=== PATIENT | female | born 1995 | race Caucasian/White ===

== ENCOUNTER 2025-06-02 11:15 | Outpatient (CLI) | payer MEDICAID, SELFPAY | END 2025-06-02 11:16 | disposition home or self-care (01) | LOC: AMB 06-03 10:16 | PROVIDERS: PCP Physician Assistant Medical; Visit Provider Student in an Organized Health Care Education/Training Program | DX: R45.851 Suicidal ideations (principal); T50.912A Poisoning by multiple unspecified drugs, medicaments and biological substances, intentional self-harm, initial encounter; Y92.830 Public park as the place of occurrence of the external cause | CPT/HCPCS: A0425; A0427 ==

== ENCOUNTER 2025-06-02 11:40 | Emergency (ER) | payer MEDICAID, SELFPAY ==
[2025-06-02] VITALS (11 sets, daily range): BP systolic 144–170; BP diastolic 73–110; PULSE 96–123; RESP 16–17; TEMP 36.7; O2SAT 95–100
--- OUTSIDE RECORDS SUMMARY | 2025-06-02 11:42 | XMS_ITS | Encounter Summary ---
Author Organization [facility] Address [address] [place] [address] Care Team Providers Care Habilitation Assistant Name Role Phone Isiah Lozano P.A.-C. Primary Care Provider +1- [phone] Encounter Details Date Type Department Care Team (Late st Contact Info) Description 07/04/2011 Historical Ophthalmology RST OPH Donovan Echols O.D. 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 - 07/04/2011 10:01 AM CDT Eye Subsequent Visit HISTORY OF PRESENT ILLNESS Low vision consultation requested by Dr. Little. Also recommended by Dr. Meyers in [place]. Visual goals include 1. Distance vision. She sits in the front of the room and can generally see the board. 2. Near: removes glasses, enlarges print on computer screen. Loves to read, no sports. 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 Remove Rx for near. Add an extra +1.50 for reading comfort. No telescopic aids at this time. 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 [address] [place] [address] PCP - General Family Medicine 12/26/21 documented as of this encounter
--- OUTSIDE RECORDS SUMMARY | 2025-06-02 11:42 | XMS_ITS | Encounter Summary ---
Author Organization [facility] Address [address] [place] [address] Care Team Providers Care Radar Engineer Name Role Phone Isiah Lozano P.A.-C. Primary Care Provider +1- [phone] Encounter Details Date Type Department Care Team (Late st Contact Info) Description 01/28/2011 Historical Ophthalmology RST OPH Dain Little M.D. 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 - 01/28/2011 8:06 AM CDT Eye General CHIEF COMPLAINT Stargardt's Disease HISTORY OF PRESENT ILLNESS Decreased Vision; both eyes; x 1-2 years; no eye pain. IMPRESSION / REPORT / PLAN Overall impression: 30-2 visual field testing shows scattered abnormalities, with reduced sensitivity, OU. mFERG shows reduced macular responses out to ring 5 full field ERG responses show some reduction in anais responses with normal cone responses #1 Stargardt's with Fundus Flavimaculatus #2 low vision Recommend low-vision consultation with Dr. Echols DIAGNOSIS #1 Stargardt's with Fundus Flavimaculatus #2 low vision CDM Reports - EYEGEN Id: [id number] Status: Fnl documented in this encounter Plan [...] CDT COVID19 09/02/2023 09/02/2023 09/22/2023 6:16 AM COCKTAIL LOUNGE MANAGER documented as of this encounter Care Teams Radar Engineer Relationship Specialty Start Date End Date Isiah Lozano, P.A.-C. [address] [place] [address] PCP - General Family Medicine 12/26/21 documented as of this encounter
--- OUTSIDE RECORDS SUMMARY | 2025-06-02 11:42 | XMS_ITS | Encounter Summary ---
Author Organization [facility] Address [address] [place] [address] Care Team Providers Care Soaping Department Supervisor Name Role Phone Isiah Lozano P.A.-C. 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 [address] [place] [phone] PCP - General Family Medicine 12/26/21 documented as of this encounter
--- OUTSIDE RECORDS SUMMARY | 2025-06-02 11:42 | XMS_ITS | Clinical Summary ---
Author Organization [email or web address] [facility] Address [address] [place] [address] Care Team Providers Care Ship'S Pilot Name Role Phone Kiera Navarro MD Unavailable + [facility] Care, Branch Unavailable [phone] Isiah Lozano Primary Care Provider [phone] Allergies Active Allergy Reactions Criticality Noted Date Comments Lactose Nausea Only 11/18/2016 Lamotrigine Rash 04/21/2020 Latex Rash Medium 04/25/2020 Morphine Other - Describe In Comment Field 07/30/2017 Chest tightness worsened and labored breathing after 6 milligrams of morphine in the emergency department Hydrocodone-Acetaminop hen Rash,Nausea Only,GI Upset,Other - Describe In Comment Field 05/05/2020 Shooting pains up L arm Sulfamethoxazole-Trime thoprim Itching 09/16/2018 Tramadol Rash,Nausea Only,Flushing 04/09/2016 Medications ibuprofen (ADVIL; MOTRIN) 600 mg tabletIndications :Pain Take 1 tablet by mouth every 6 hours if needed for Pain (for MODERATE pain. If a NSAID and opiate are both ordered and pain rating is MODERATE, administer the NSAID first unless otherwise indicated). Maximum of 3200 mg in 24 hours. 60 tablet 0 9:40 AM CDT 06/06/20 20 Active Vienva 0.1-20 mg-mcg tablet Take 1 Tablet by mouth once daily. 01/10/20 21 Active omeprazole (PRILOSEC) 20 mg Delayed-Release capsule Take 20 mg by mouth once daily before a meal. 12/27/19 22 Active ketoconazole 2% shampoo (NIZORAL) 2 % shampoo As directed 0.5 mg once weekly. Use once weekly for maintenance, increase to every other day if there is a flare of dermatitis. 07/24/20 22 Active levothyroxine (SYNTHROID) 150 mcg tablet Take 150 mcg by mouth once daily. 10/06/19 23 Active polyethylene glycol (MIRALAX; GLYCOLAX) 17 g per packet packet Mix 1 Packet in liquid then take by mouth once daily. Active zonisamide (ZONEGRAN) 100 mg capsuleIndication s:Partial idiopathic epilepsy with seizures of localized onset, not intractable, without status epilepticus (HC) Take 3 Capsules (300 mg) by mouth at bedtime. 90 Capsule 11 06/15/20 24 Active oxyCODONE-acetami nophen (PERCOCET) 5-325 mg per tabletIndications :Retention of urine Take 1 Tablet by mouth every 6 hours if needed for Pain. Max acetaminophen dose: 4000mg in 24 hrs. 10 Tablet 5 12:54 PM [employer]ENT 10/20/19 25 Active hydrOXYzine HCL 50 mg tabletIndications :Anxiety TAKE 2 TABLETS BY MOUTH TWICE A DAY AT 8 AM AND 4 PM. 60 Tablet 3 03/21/20 25 Active propranoloL 10 mg tabletIndications :Panic Take 1 Tablet (10 mg) by mouth two times daily. 60 Tablet 3 04/07/20 25 Active gabapentin (NEURONTIN) 600 mg tabletIndications :Anxiety Take 1 Tablet (600 mg) by mouth three times daily. 90 Tablet 3 05/09/20 25 Active vortioxetine (Trintellix) 20 mg tabletIndications :Severe recurrent major depression without psychotic features (HC) Take 1 Tablet (20 mg) by mouth once daily. 30 Tablet 3 05/02/20 25 Active metoclopramide HCl (REGLAN) 10 mg tabletIndications :Nausea vomiting and diarrhea Take 1 Tablet (10 mg) by mouth every 8 hours if needed for Nausea/Vomiting for up to 4 doses. 4 Tablet 05/17/20 25 Active ondansetron (ZOFRAN ODT) 4 mg disintegrating tabletIndications :Nausea vomiting and diarrhea Place 1 Tablet (4 mg) on the tongue every 8 hours if needed for Nausea/Vomiting. 12 Tablet 05/17/20 25 Active metoclopramide HCl (REGLAN) 10 mg tabletIndications :Nausea vomiting and diarrhea Take 1 Tablet (10 mg) by mouth every 8 hours if needed for Nausea/Vomiting. 8 Tablet 05/17/20 25 Active QUEtiapine (SEROQUEL) 100 mg tabletIndications :Mood disorder Take 100 mg each morning. Together with evening dose of 400mg total daily dose is 500 mg 30 Tablet 3 05/30/20 25 Active QUEtiapine (SEROQUEL) 50 mg tabletIndications :Severe recurrent major depression without psychotic features (HC) Take 1 TABLET BY MOUTH together with 100 mg tab for total morning dose of 150 mg 30 Tablet 3 05/30/20 25 Active QUEtiapine (SEROQUEL) 400 mg tabletIndications :Severe recurrent major depression without psychotic features (HC),Insomnia, unspecified type Take 1 Tablet (400 mg) by mouth at bedtime. 30 Tablet 3 05/30/20 25 Active prazosin (MINIPRESS) 2 mg capsuleIndication s:Nightmares Take 1 Capsule (2 mg) by mouth at bedtime. TAKE ALONG WITH 1 MG CAPSULE FOR A TOTAL OF 3 MG. 30 Capsule 3 05/30/20 25 Active prazosin (MINIPRESS) 1 mg capsuleIndication s:Nightmares Take 1 Capsule (1 mg) by mouth at bedtime. Take along with the 2 mg dose 30 Capsule 3 05/30/20 25 Active mirtazapine (REMERON) 45 mg tabletIndications :Severe recurrent major depression without psychotic features (HC),Anxiety Take 1 Tablet (45 mg) by mouth at bedtime. 30 Tablet 3 05/30/20 25 Active LORazepam 1 mg tabletIndications :Anxiety Take 1 Tablet (1 mg) by mouth two times daily. 60 Tablet 05/30/20 25 Active QUEtiapine 100 mg tabletIndications :Mood disorder Take 100 mg each morning. Together with evening dose of 400mg total daily dose is 500 mg 30 Tablet 3 02/22/20 25 025 Discontin ued(Reord er (E-cancel not sent)) mirtazapine 45 mg tabletIndications :Anxiety,Severe recurrent major depression without psychotic features (HC) Take 1 Tablet (45 mg) by mouth at bedtime. 30 Tablet 3 02/22/20 25 025 Discontin ued(Reord er (E-cancel not sent)) prazosin 1 mg capsuleIndication s:Nightmares Take 1 Capsule (1 mg) by mouth at bedtime. Take along with the 2 mg dose 30 Capsule 3 02/22/20 25 025 Discontin ued(Reord er (E-cancel not sent)) QUEtiapine 400 mg tabletIndications :Severe recurrent major depression without psychotic features (HC),Insomnia, unspecified type Take 1 Tablet (400 mg) by mouth at bedtime. 30 Tablet 3 02/22/20 25 025 Discontin ued(Reord er (E-cancel not sent)) prazosin (MINIPRESS) 2 mg capsuleIndication s:Nightmares Take 1 Capsule (2 mg) by mouth at bedtime. TAKE ALONG WITH 1 MG CAPSULE FOR A TOTAL OF 3 MG. 30 Capsule 3 04/15/20 025 Discontin ued(Reord er (E-cancel not sent)) LORazepam 1 mg tabletIndications :Anxiety Take 1 Tablet (1 mg) by mouth two times daily. 60 Tablet 04/26/20 025 Discontin ued(Reord er (E-cancel not sent)) QUEtiapine (SEROQUEL) 50 mg tabletIndications :Severe recurrent major depression without psychotic features (HC) Take 1 TABLET BY MOUTH together with 100 mg tab for total morning dose of 150 mg 30 Tablet 1 04/26/20 025 Discontin ued(Reord er (E-cancel not sent)) cephalexin 500 mg capsuleIndication s:Nausea vomiting and diarrhea Take 1 Capsule (500 mg) by mouth three times daily for 7 days. 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 04/15/2025 Panic 04/07/2025 alcohol syndrome 04/07/2025 Impulse control disorder in adult 04/07/2025 Anxiety with agitation 03/21/2025 Nightmares 02/21/2025 Insomnia 02/21/2025 Urinary retention 05/05/2020 Suicidal ideation 04/21/2020 Overdose 04/21/2020 Seizure disorder 04/21/2020 MDD (major depressive disorder) 04/21/2020 Lab test negative for COVID-19 virus 04/21/2020 PTSD (post-traumatic stress disorder) 04/21/2020 alcohol spectrum disorder 04/21/2020 ADHD 04/21/2020 Anxiety 04/21/2020 Borderline personality disorder 04/21/2020 H/O self-harm 09/21/2019 Buttock wound, left, sequela 09/21/2019 Gastroesophageal reflux disease without esophagi tis 09/21/2019 Administrative encounter 02/24/2019 Severe recurrent major depre ssion without psychotic features 01/28/2019 Paranoia 01/15/2019 Delusional disorder 01/15/2019 Overview (05/18/2025): AI Summary: Delusional disorder was in the patient's history, with onset on 01/15/2019. The patient presented to the emergency department with complaints of suicidal ideation and extremity laceration. The patient denied stress-related paranoia or dissociation. 10/13/24: TSH 0.9 mIU/L 10/13/24: Glu 102 mg/dL On meds: quetiapine Recent encounter dx: 10/18/24: Comprehensive Visit - [facility] Department of Family Medicine in [place], [place], Family Medicine (from [facility]) 10/13/23: Comprehensive Visit - [facility] Department of Family Medicine in [place], [place], Family Medicine (from [facility]) 09/30/22: Comprehensive Visit - [facility] Department of Family Medicine in [place], [place], Family Medicine (from [facility]) 09/11/21: Comprehensive Visit - Department of Family Medicine in [place], [place], Family Medicine (from [facility]) 09/06/20: Comprehensive Visit - Department of Family Medicine and Residency in [place], [place], Family Medicine (from [facility]) Recent notes: 02/21/25: Progress Notes by Laura Brady MD ... [-] Stress-Related Paranoia/Dissociation: Denies. ... [+] ? Paranoia (HC) 01/15/2019 10/18/24: H&P Notes - H&P by Isiah Lozano P.A.-C. (from [facility]) ... [+] #13 Delusional Disorder (HCC) 10/18/24: H&P Notes - H&P by Isiah Lozano P.A.-C. (from [facility]) ... [+] Delusional Disorder (HCC) ... [+] Delusional Disorder (HCC) 01/15/2019 08/18/24: Consult Notes - Consults by Tricia Welch M.S., O.T. (from [facility]) ... 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 08/18/24: H&P ... [+] Borderline Personality Disorder (HCC) Delusional Disorder (HCC) Dystrophies Primarily Involving Retinal Pigment Epithelium Alcohol Syndrome (HCC) Gastroesophageal Reflux Disease Without Esophagitis Depression Major Recurrent Severe Without Psychotic Features (HCC) Neuromuscular Dysfunction Of Bladder Unspecified Posttraumatic Stress Disorder Brief Retention Urinary Seizure Disorder (HCC)... ... 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, trauma 04/13/20 07 Overview (04/13/2007): s/p muscle transfer surgery Attention deficit disorder with hyperactivity(31 4.01) 01/14/2007 Failure to thrive in childhood 01/14/2007 Attention deficit disorder with hyperactivity(31 4.01) Legally blind Borderline personality disorder Suicide attempt by ingestion of sertraline - Apr Post traumatic stress disorder (PTSD) Bladder dysfunction Resolved Problems Problem Noted Date Diagnosed Date Resolved Date Moderate recurrent major depression 01/15/2019 01/28/2019 Encounters Date Type Department Care Team Description 06/01/2025 Telephone [facility] [address] [place] [address] Laura Brady MD Follow Up 05/30/2025 1:45 PM CDT Telemedicine [facility] [address] [facility] [address] [place] [address] Laura Brady MD Telehealth; Medication Management; Follow Up 05/30/2025 Telephone [facility] [address] [facility] [address] [place] [address] Laura Brady MD Care Coordination 05/30/2025 Travel 05/18/2025 10:53 AM CDT - 05/18/2025 3:15 PM CDT Emergency [address] [address] Elvi Jaime PA Nausea vomiting and diarrhea (Primary Dx); Urinary tract infection without hematuria, site unspecified Discharge Disposition: Home Self Care 05/18/2025 Travel 05/17/2025 6:38 PM CDT - 05/17/2025 9:10 PM CDT Emergency [facility] [address] [place] [address] Erick King MD Nausea vomiting and diarrhea (Primary Dx) Discharge Disposition: Home Self Care 05/17/2025 Travel 05/02/2025 11:15 AM CDT Telemedicine [facility] [address] [place] [address] Laura Brady MD Follow Up; Medication Management; Telehealth 05/02/2025 Travel 04/29/2025 Refill [facility] [address] [place] [address] Laura Brady MD Refill Request (Trintellix) 04/26/2025 Refill [facility] [place] [address] [address] Laura Brady MD Refill Request (Quetiapine) 04/25/2025 11:15 AM CDT Telemedicine [address] [address] Laura Brady MD Follow Up 04/25/2025 Travel 04/15/2025 1:15 PM CDT Telemedicine [address] [address] Laura Brady MD Telehealth (patient is in [place]); Follow Up 04/08/[address] [address] Laura Brady MD Medication Management (gabapentin 600 mg tablet /) 04/07/[address] [address] Laura Brady MD ACC Order Request (Medication orders-propranoloL 10 mg tablet ) 04/06/2025 10:45 AM CDT Telemedicine [address] [address] Laura Brady MD Follow Up 03/31/[address] [address] Laura Brady MD Prior Authorization (vortioxetine (Trintellix) 20 mg tablet APPROVED 04/01/25-04/01/26) 03/29/[address] [address] Laura Brady MD Refill Request (Quetiapine) 03/28/2025 9:15 AM CDT Telemedicine [address] [address] Laura Brady MD Follow Up 03/28/2025 Refill [facility] [address] [address] Laura Brady MD Refill Request (Lorazepam) 03/28/2025 Travel 03/24/2025 Telephone [facility] [address] [facility] [address] [place] [address] Laura Brady MD Medication Management (QUEtiapine 25 mg tablet) 03/22/2025 Refill [facility] [address] [facility] [address] [place] [address] Laura Brady MD Refill Request (Quetiapine) 03/21/2025 1:15 PM CDT Telemedicine [facility] [address] [place] [address] Laura Brady MD Telehealth (patient is in [place]); Follow Up 03/17/2025 Telephone [facility] [address] [facility] [address] [place] [address] Laura Brady MD Refill Request (hydrOXYzine HCL 50 mg tablet) 03/14/2025 10:45 AM CDT Telemedicine [facility] [address] [place] [address] Laura Brady MD Follow Up 03/14/2025 Travel 03/11/2025 Telephone [facility] [address] [place] [address] Laura Brady MD Error-please disregard 03/11/2025 Telephone [facility] Centralized Nurse Triage Aimee Singleton requesting call from Last 3 Months Immunizations Immunization Administration Dates Next Due AMB Influenza, IIV3 (Age >=3 years) Preserve Free (Flu Clinic Only) 08/04/2012 DTP 1997 DTaP 04/26/2002, 9,10/31/1998,08/08 HIB-HepB (Comvax) 06/05/1999,10/31/1998,08/08/19 98 Hepatitis A (Peds) 09/04/2009,03/10/2009 Human Papilloma Virus Vaccine 09/04/2009, 009,03/10/2009 Inactivated Polio Vaccine 04/26/2002 Influenza A (H1N1), Inactivated 08/25/2009 Influenza A (H1N1), Inactiva kate (Age >=3 Years) 08/25/2009 Influenza Virus, Unspecified 07/18/2020 Influenza, High-dose Inactivated 07/16/2016 Influenza, IIV3 (Age 6-35 mos) 08/04/2012 Influenza, IIV3 (Age >=3 years) 10/12/2013,09/06,09/03/2010 Influenza, IIV4 06/17/2019,06/03/2016,09/16/2014 Influenza,LAIV4 Live Intrana bianca (Flumist) 08/21/2009,09/05/2008 MENINGOCOCCAL VACCINE 2 VIAL 2MO-55YO (MENVEO) 03/11/2014 MMR 04/26/2002,08/08/1998 Meningococcal Vaccine (Menactra) 05/12/2009 Oral Polio Vaccine 1997,1997, 997 Tdap 05/18/2019,03/10/2009 Tuberculin (PPD) 02/08/2019 Varicella Vaccine 09/05/2008,05/05/1998 Social History Tobacco Use Types Packs/Day Years Used Date Smoking Tobacco: Never Smokeless Tobacco: Never Tobacco Cessation:Counseling Given: Yes Comments:never smoking Alcohol Use Standard Drinks/Week Comments Not Currently 0 (1 standard drink = 0.6 oz pur e alcohol) occaisionally PHQ-2 Answer Date Recorded PHQ-2 TOTAL SCORE 2 05/30/2025 Social Connections Answer Date Recorded Frequency of Communication with Friends and Fami ly Not on file 09/15/2021 Financial Resource Strain Answer Date R ecorded Difficulty of Paying Living Expenses Not on file 09/15/2021 Difficulty of Paying Living Expenses Not on file 09/15/2021 Interpersonal Safety Answer Date Record ed Are you being hit, kicked, p ushed or yelled at (see row info)? No 05/18/2025 Interpersonal Safety Abuse 12 - 18 Not on file 05/18/2025 Interpersonal Safety Ambulatory Vulnerability No t on file 05/18/2025 Comments No Sex and Gender Information Value Date Recorded Sex Assigned at Not on file Legal Sex Female 5:46 AM [employer] Gender Identity Not on file Sexual Orientation Not on file Obstetrics History Para Term AB IAB SAB Ectopic Multiple Livin g Live Births 0 0 0 0 0 0 0 0 0 0 Last Filed Vital Signs Vital Sign Reading Time Taken Comments Blood Pressure 127/98 05/18/2025 2:23 PM CDT Pulse 104 05/18/2025 2:23 PM CDT Temperature 36.9 C (98.5 F) 05/18/2025 11:08 AM CDT Respiratory Rate 17 05/18/2025 11:08 AM CDT Oxygen Saturation 95% 05/18/2025 2:23 PM CDT Inhaled Oxygen Concentration - - Weight 108 kg (238 lb) 05/18/2025 11:08 AM CDT Height 171.5 cm (5' 7.5) 05/18/2025 11:08 AM CD T Body Mass Index 36.73 05/18/2025 11:08 AM CDT Plan of Treatment Health Maintenance Due Date Last Done Comments HIV for age 15-65 2012 Hepatitis C screening for age 18-79 2015 BMI (ht and wt on same day) for age 18+ 06/17/2020 06/17/2019, 05/31/2019, 05/18/2019, Additional history exists Pap test for age 21-65 05/18/2022 05/18/2019 COVID-19 vaccine series ( season) 2025 07/23/2022, 08/30/2021, 11/16/2020, Additional history exists Influenza Vaccine (#1) 2025 , 06/17/2019, 07/16/2016, Additional history exists Depression screening for age 12+ 05/30/2026 05/30/2025, 05/02/2025, 04/15/2025, Additional history exists Tetanus booster 05/18/2029 05/18/2019, 03/10/2009 RSV vaccine for adults or (1 - 1-dose 75+ series) 2072 Hepatitis B series for 19+ Completed 06/05, 10/31/1998, 08/08/1998 HPV series for age 9-45 Completed 09/04/20, 05/12/2009, 03/10/2009 Pneumococcal series for age 6-49 Aged Out No longer eligible based on patient's age to complete this topic Medical Devices Implanted Type Area Chinchilla Machine Operator Device Identifier Shelf Expiration Date Model / Serial / Lot Stimulator 7.7mm 14cc Interstim Ii - [id number] Implanted:Qty: 1 on 09/24/2019 at [facility] N/A: See Notes Med[employer] Pain Therapy 02/27/2020 [id number]# / [id number] / Description:RIGHT BUTTOCKS Medtronic Surescan Lead Kit [id number] - [id number] Implanted:Qty: 1 on 05/31/2020 by Liliana Olmos MD at [facility] N/A: Sacrum Medtronic [id number] / / [id number] Description:lead placed lowe r midline back Stimulator 7.7mm 14cc Interstim Ii - [id number] Implanted:Qty: 1 on 05/31/2020 by Liliana Olmos MD at [facility] N/A: Sacrum [employer] Pain Therapy 05/29/2021 [id number]# / [id number] / Lead Kit 4.32mm Spacing 28cm Length Interstim - [id number] Implanted:Qty: 1 on 10/20/2024 by Liliana Olmos MD at [facility] N/A: Buttock Med[employer] Pain Therapy 04/28/2026 [id number] / / [id number] Description:NO INFO JACQUELINE Smith .................... 10/21/2024 8:38 AM Sys Interstim X Surescan Mri Lead And Smart Cabinet Mounter - [id number] Implanted:Qty: 1 on 10/20/2024 by Liliana Olmos MD at [facility] N/A: Buttock Med[employer] Pain Therapy 03/12/2026 [id number] / [id number] / Description:NO INFO JACQUELINE Smith .................... 10/21/2024 8:38 AM Explanted Type Area Chinchilla Machine Operator Device Identifier Shelf Expiration Date Model / Serial / Lot Lead Intrdcr Bladder Interstim - [id number] Explanted:Qty: 1 on 09/24/2019 at [facility] [employer] Pain Therapy 12/04/2019 [id number]# / / [id number] Procedures Procedure Name Priority Date/Time Associated Diagnosis Comments URINE CULTURE ANDREW 05/18/2025 1:05 PM CDT URINALYSIS MICROSCOPIC STAT 05/18/2025 1:05 PM CDT UA W/ SEDIMENT EXAM REFLEXED PER CRITERIA STAT 05/18/2025 1:[address] ABDOMEN PELVIS W STAT 05/18/2025 1 2:30 PM CDT CBC WITH AUTO DIFFERENTIAL STAT 05/18/2025 11:44 AM CDT LIPASE STAT 05/18/2025 11:44 AM CDT COMP METABOLIC PANEL STAT 05/18/2025 11:44 AM CDT CBC WITH AUTO DIFFERENTIAL STAT 05/18/2025 11:44 AM CDT URINALYSIS MICROSCOPIC STAT 05/17/2025 7:39 PM CDT URINE STAT 05/17/2025 7:39 PM CDT UA W/ SEDIMENT EXAM REFLEXED PER CRITERIA STAT 05/17/2025 7:39 PM CDT CBC WITH AUTO DIFFERENTIAL STAT 05/17/2025 6:52 PM CDT LIPASE STAT 05/17/2025 6:52 PM CDT HEPATIC FUNCTION PANEL STAT 05/17/2025 6:52 PM CDT CBC WITH AUTO DIFFERENTIAL STAT 05/17/2025 6:52 PM CDT BASIC METABOLIC PANEL STAT 05/17/2025 6:52 PM CDT BENCH MECHANIC THIN PREP PAP SCREEN IMAGED Today 05/18/2019 11:20 AM CDT Pap smear for cervical cancer screening from Last 3 Months or Most Recently Relevant to Health Maintenance Results * (ABNORMAL) URINALYSIS MICROSCOPIC (05/18/2025 1:05 PM CDT) Only the most recent of2 resultswithin the time period is included. RBC 11-25(A) 0-2, None Seen /HPF 05/18/2025 1:19 PM CDT [facility] WBC 0-2 0-2, 3-5, None Seen /HPF 05/18/2025 1:19 PM CDT [facility] BACTERIA Many(A) None Seen, Rare, Few Bacteria/H PF 05/18/2025 1:19 PM CDT [facility] EPITHELIAL CELLS Few None Seen, Few Epi/HPF 05/18/2025 1:19 PM CDT [facility] Mucus Present 05/18/2025 1:19 PM CDT [facility] Urine URINE SPECIMEN / Unknown Non-Blood / Unknown 05/18/2025 1:05 PM CDT 05/18/2025 1:09 PM CDT Elvi RODRIGUEZ URINE Final R esult [facility] [address] [place] [address] * (ABNORMAL) URINE CULTURE (05/18/2025 1:05 PM CDT) CULTURE RESULT(A) 05/23/2025 2:53 PM CDT [facility] CULTURE 50,000-100,000 CFU/mL Escherichia coli 05/23/2025 2:53 PM CDT [facility] CULTURE 10,000-50,000 CFU/mL Enterococcus faecalis 05/23/2025 2:53 PM T [facility] Comment: Levofloxacin susceptibilities for Enterococcus available upon request for urine isolates ONLY. Levofloxacin is not routinely recommended for Enterococcus and can ONLY be used for infections isolated in the urinary tract. In the setting of polymicrobial urine cultures, Enterococcus often represents colonization and may not necessitate treatment. CULTURE <10,000 CFU/mL Multiple organisms probable contaminants 05/23/2025 2:53 PM CDT [facility] Urine URINE SPECIMEN / Unknown Non-Blood / Unknown 05/18/2025 1:05 PM CDT 05/18/2025 1:09 PM CDT Narrative Organism Antibiotic Method Susceptibility Escherichia coli TRIMETHOPRIM/SULF <=10/03: S Escherichia coli AMPICILLIN 4: S Escherichia coli CEFAZOLIN <=1: S Escherichia coli CEFAZOLIN-UC <=1: S Comment:Cefazolin-UC interpretations are for therapy of uncomplicated UTIs due to E.coli, K.pneumoniae, or P.mirablis. Cefazolin breakpoint is used as a surrogate to predict results for the oral agents - cefdinir, cefuroxime, and cephalexin, when used for therapy of uncomplicated UTIs due to E coli, K, pneumoniae, and P. mirabilis. The FDA recommends cefadroxil susceptibility can be deduced from cefazolin. Escherichia coli GENTAMICIN <=1: S Escherichia coli CEFTRIAXONE <=0.25: S Escherichia coli CEFTAZIDIME <=0.5: S Escherichia coli LEVOFLOXACIN <=0.12: S Escherichia coli CIPROFLOXACIN <=0.06: S Escherichia coli PIPERACILLIN/TAZO <=4: S Escherichia coli AMPICILLIN/SULBACTAM <=2: S Escherichia coli CEFEPIME <=0.12: S Escherichia coli MEROPENEM <=0.25: S Escherichia coli NITROFURANTOIN <=16: S Enterococcus faecalis AMPICILLIN <=2: S Enterococcus faecalis NITROFURANTOIN <=16: S Elvi RODRIGUEZ MICROBIOLOGY Final R esult [facility] [address] [place] [address], [place] * (ABNORMAL) UA W/ SEDIMENT EXAM REFLEXED PER CRITERIA (05/18/2025 1:05 PM CDT) Only the most recent of2 resultswithin the time period is included. COLOR Yellow Yellow Color 05/18/2025 1:15 PM [facility] CLARITY Slightly Cloudy(A) Clear Clarity 05/18/2025 1:15 PM [facility] SPECIFIC GRAVITY,URINE 1.015 1.010, 1.015, 1.020, 1.025 05/18/2025 1:15 PM [facility] PH,URINE 6.5 6.0, 7.0, 8.0, 5.5, 6.5, 7.5, 8.5 05/18/2025 1:15 PM [facility] UROBILINOGEN,QU ALITATIVE Normal Normal EU/dl 05/18/2025 1:15 PM [facility] PROTEIN, URINE Negative Negative mg/dL 05/18/2025 1:15 PM [facility] GLUCOSE, URINE Negative Negative mg/dL 05/18/2025 1:15 PM [facility] KETONES,URINE >=80(A) Negative mg/dL 05/18/2025 1:15 PM [facility] BILIRUBIN,URINE Abnormal(A) Negative 05/18/20 1:15 PM [facility] Comment:A variety of metabol ites and/or medications may result in a positive bilirubin result. Clinical correlation is recommended. OCCULT BLOOD,URINE Trace(A) Negative 05/18/2025 1:15 PM [facility] NITRITE Negative Negative 05/18/2025 1:15 PM [facility] LEUKOCYTE ESTERASE Negative Negative 05/18/2025 1:15 PM [facility] Urine URINE SPECIMEN / Unknown Non-Blood / Unknown 05/18/2025 1:05 PM CDT 05/18/2025 1:09 PM CDT us Elvi Jaime PA URINE Final R esult [facility] [address] [place], [place] [id number] * CT ABDOMEN PELVIS W (05/18/2025 12:30 PM CDT) Anatomical Region Laterality Modality Abdomen, Pelvis, AORTA, LIVER, SPLEEN Computed Tomography 05/18/2025 12:4 9 PM CDT Impressions 05/18/2025 12:49 PM CDT No acute findings within the abdomen or pelvis. Please note that all CT scans at this facility use dose modulation, iterative reconstruction, and/or weight-based dosing when appropriate to reduce radiation dose to as low as reasonably achievable. Dictated by Yvonne Chris MD @ 05/18/2025 12:49:43 PM (Electronically Signed) Narrative 05/18/2025 12:49 PM CDT For Patients: As a result of the Cures Act, medical imaging exams and procedure reports are released immediately into your electronic medical record. You may view this report before your referring provider. If you have questions, please contact your health care provider. INDICATION: Nausea, vomiting, diarrhea TECHNIQUE: CT abdomen and pelvis acquired with 100 cc Omnipaque 300 IV contrast. COMPARISON: CT pelvis with contrast 09/21/2019. FINDINGS: Lower chest: Minimal atelectasis. Liver: Unremarkable. No suspicious masses. Gallbladder and bile ducts: Unremarkable. No stones or inflammation. No biliary dilatation. Pancreas: Unremarkable. No mass or inflammation. Spleen: Unremarkable. Normal in size. No masses. Adrenal glands: Unremarkable. No nodules. Kidneys: Unremarkable. No suspicious masses, stones, or hydronephrosis. GI tract: Unremarkable. Normal in caliber. No sign of mass or inflammation. Status post appendectomy. Vasculature: Abdominal aorta is normal in caliber. Mesenteric arteries are patent. Lymph nodes: No lymphadenopathy. Peritoneum/Abdominal Wall: Unremarkable. No sign of mass or infiltration. No free air or significant free fluid. Pelvis: Underdistended urinary bladder. Sacral nerve stimulator in place. Bones: Unremarkable for age. Procedure Note Yvonne Chris MD - 05/18/2025 For Patients: As a result of the Cures Act, medical imagingexams and procedure reports are released immediately into your electronicmedical record. You may view this report before your referring provider.If you have questions, please contact your health care provider. INDICATION: Nausea, vomiting, diarrhea TECHNIQUE: CT abdomen and pelvis acquired with 100 cc Omnipaque 300 IV contrast. COMPARISON: CT pelvis with contrast 09/21/2019. FINDINGS: Lower chest: Minimal atelectasis. Liver: Unremarkable. No suspicious masses. Gallbladder and bile ducts: Unremarkable. No stones or inflammation. Nobiliary dilatation. Pancreas: Unremarkable. No mass or inflammation. Spleen: Unremarkable. Normal in size. No masses. Adrenal glands: Unremarkable. No nodules. Kidneys: Unremarkable. No suspicious masses, stones, or hydronephrosis. GI tract: Unremarkable. Normal in caliber. No sign of mass orinflammation. Status post appendectomy. Vasculature: Abdominal aorta is normal in caliber. Mesenteric arteries arepatent. Lymph nodes: No lymphadenopathy. Peritoneum/Abdominal Wall: Unremarkable. No sign of mass or infiltration.No free air or significant free fluid. Pelvis: Underdistended urinary bladder. Sacral nerve stimulator in place. Bones: Unremarkable for age. IMPRESSION: No acute findings within the abdomen or pelvis. Please note that all CT scans at this facility use dose modulation,iterative reconstruction, and/or weight-based dosing when appropriate toreduce radiation dose to as low as reasonably achievable. Dictated by Yvonne Chris MD @ 05/18/2025 12:49:43 PM (Electronically Signed) Elvi RODRIGUEZ CT Final R esult * CBC WITH AUTO DIFFERENTIAL (05/18/2025 11:44 AM CDT) Only the most recent of2 resultswithin the time period is included. WHITE BLOOD COUNT 8.0 4.5 - 11.0 thou/cu mm 05/18/2025 11:52 AM CDT [facility] RED BLOOD COUNT 4.73 4.00 - 5.20 mil/cu mm 05/18/2025 11:52 AM T [facility] HEMOGLOBIN 12.8 12.0 - 16.0 g/dL 05/18/2025 11:52 AM [facility] HEMATOCRIT 39.1 33.0 - 51.0 % 05/18/2025 11:52 AM [facility] MCV 83 80 - 100 fL 05/18/2025 11:52 AM [facility] MCH 27.1 26.0 - 34.0 pg 05/18/2025 11:52 AM [facility] MCHC 32.7 32.0 - 36.0 g/dL 05/18/2025 11:52 AM [facility] RDW 12.9 11.5 - 15.5 % 05/18/2025 11:52 AM [facility] PLATELET COUNT 304 140 - 440 thou/cu mm 05/18/2025 11:52 AM [facility] MPV 9.5 6.5 - 11.0 fL 05/18/2025 11:52 AM [facility] % NEUT 72.2 % 05/18/2025 11:52 AM [facility] % LYMPH 20.4 % 05/18/2025 11:52 AM [facility] % MONO 7.0 % 05/18/2025 11:52 AM [facility] % EOS 0.1 % 05/18/2025 11:52 AM [facility] % BASO 0.3 % 05/18/2025 11:52 AM [facility] ABSOLUTE NEUTROPHILS 5.8 1.7 - 7.0 thou/cu mm 05/18/2025 11:52 AM [facility] ABSOLUTE LYMPHOCYTES 1.6 0.9 - 2.9 thou/cu mm 05/18/2025 11:52 AM [facility] ABSOLUTE MONOCYTES 0.6 <0.9 thou/cu mm 05/18/2025 11:52 AM [facility] ABSOLUTE EOSINOPHILS 0.0 <0.5 thou/cu mm 05/18/2025 11:52 AM [facility] ABSOLUTE BASOPHILS 0.0 <0.3 thou/cu mm 05/18/2025 11:52 AM [facility] Blood BLOOD SPECIMEN / Unknown IV Start / Unknown 05/18/2025 11:44 AM CDT 05/18/2025 11:48 AM CDT Elvi RODRIGUEZ HEMATOLOGY Final R esult [facility] [address] [place] [address] * LIPASE (05/18/2025 11:44 AM CDT) Only the most recent of2 resultswithin the time period is included. LIPASE 19.1 13.0 - 60.0 IU/L 05/18/2025 12:15 PM [facility] Blood BLOOD SPECIMEN / Unknown IV Start / Unknown 05/18/2025 11:44 AM CDT 05/18/2025 11:48 AM CDT Elvi RODRIGUEZ CHEMISTRY Final R esult [facility] [address] [place] [address] * (ABNORMAL) COMP METABOLIC PANEL (05/18/2025 11:44 AM CDT) SODIUM 142 136 - 145 mmol/L 05/18/2025 12:15 PM [facility] POTASSIUM 3.7 3.5 - 5.1 mmol/L 05/18/2025 12:15 PM [facility] CHLORIDE 109(H) 98 - 107 mmol/L 05/18/2025 12:15 PM [facility] CO2,TOTAL 20(L) 22 - 29 mmol/L 05/18/2025 12:15 PM [facility] ANION GAP 13 5 - 18 05/18/2025 12:15 PM [facility] GLUCOSE 116(H) 70 - 99 mg/dL 05/18/2025 12:15 PM [facility] CALCIUM 9.3 8.8 - 10.4 mg/dL 05/18/2025 12:15 PM [facility] Comment: Reference ranges for this test were updated on 07/20/2024 to reflect our healthy population more accurately. Reference range changes are not retroactively applied to results, but previous results using the same methodology can be interpreted in the context of the new reference range. BUN 10 6 - 20 mg/dL 05/18/2025 12:15 PM [facility] CREATININE 0.67 0.50 - 0.90 mg/dL 05/18/2025 12:15 PM [facility] BUN/CREAT RATIO 15 10 - 20 12:15 PM [facility] eGFR >90 >90 mL/min/1. 73m2 05/18/2025 12:15 PM [facility] Comment:As of 2021, eG FR is calculated by the CKD-EPI creatinine equation without race adjustment. eGFR can be influenced by muscle mass, exercise, and diet. The reported eGFR is an estimation only and is only applicable if the renal function is stable. ALBUMIN 4.7 4.0 - 4.9 g/dL 05/18/2025 12:15 PM [facility] PROTEIN,TOTAL 7.7 6.0 - 8.0 g/dL 05/18/2025 12:15 PM [facility] BILIRUBIN,TOTAL 0.2 0.0 - 1.2 mg/dL 05/18/2025 12:15 PM [facility] ALK PHOSPHATASE 90 35 - 104 IU/L 05/18/2025 12:15 PM [facility] ALT (SGPT) 33 10 - 35 IU/L 05/18/2025 12:15 PM [facility] AST (SGOT) 23 10 - 35 IU/L 05/18/2025 12:15 PM [facility] Blood BLOOD SPECIMEN / Unknown IV Start / Unknown 05/18/2025 11:44 AM CDT 05/18/2025 11:48 AM T Elvi RODRIGUEZ CHEMISTRY Final R esult [facility] [address] [place] [address] * URINE (05/17/2025 7:39 PM CDT) Pathologist [facility] ,URIN E Negative Negative 05/17/2025 7:52 PM CDT [facility] Urine URINE SPECIMEN / Unknown Non-Blood / Unknown 05/17/2025 7:39 PM CDT 05/17/2025 7:43 PM CDT Erick King MD URINE Fin al Result Performing Organization Address City/[facility]/ZIP Co de Phone Number [facility] [address] [place] [address] * (ABNORMAL) HEPATIC FUNCTION PANEL (05/17/2025 6:52 PM CDT) Pathologist [facility] ALBUMIN 4.8 4.0 - 4.9 g/dL 05/17/2025 7:30 PM [facility] PROTEIN,TOTAL 8.1(H) 6.0 - 8.0 g/dL 05/17/2025 7:30 PM [facility] BILIRUBIN,TOTAL 0.3 0.0 - 1.2 mg/dL 05/17/2025 7:30 PM [facility] BILIRUBIN,DIRECT 0.1 0.0 - 0.2 mg/dL 05/17/2025 7:30 PM [facility] BILIRUBIN,INDIRE CT 0.2 0.2 - 0.8 mg/dL 05/17/2025 7:30 PM [facility] ALK PHOSPHATASE 96 35 - 104 IU/L 05/17/2025 7:30 PM [facility] ALT (SGPT) 34 10 - 35 IU/L 05/17/2025 7:30 PM [facility] AST (SGOT) 27 10 - 35 IU/L 05/17/2025 7:30 PM [facility] Blood BLOOD SPECIMEN / Unknown Venipuncture / Unknown 05/17/2025 6:52 PM CDT 05/17/2025 7:06 PM CDT Erick King MD CHEMISTRY Fin al Result [facility] [address] [place] [address] * (ABNORMAL) BASIC METABOLIC PANEL (05/17/2025 6:52 PM CDT) SODIUM 140 136 - 145 mmol/L 05/17/2025 7:30 PM [facility] POTASSIUM 3.8 3.5 - 5.1 mmol/L 05/17/2025 7:30 PM [facility] CHLORIDE 104 98 - 107 mmol/L 05/17/2025 7:30 PM [facility] CO2,TOTAL 19(L) 22 - 29 mmol/L 05/17/2025 7:30 PM [facility] ANION GAP 17 5 - 18 05/17/2025 7:30 PM [facility] GLUCOSE 99 70 - 99 mg/dL 05/17/2025 7:30 PM [facility] CALCIUM 9.6 8.8 - 10.4 mg/dL 05/17/2025 7:30 PM [facility] Comment: Reference ranges for this test were updated on 07/20/2024 to reflect our healthy population more accurately. Reference range changes are not retroactively applied to results, but previous results using the same methodology can be interpreted in the context of the new reference range. BUN 11 6 - 20 mg/dL 05/17/2025 7:30 PM [facility] CREATININE 0.74 0.50 - 0.90 mg/dL 05/17/2025 7:30 PM [facility] BUN/CREAT RATIO 15 10 - 20 7:30 PM [facility] eGFR >90 >90 mL/min/1.7 3m2 05/17/2025 7:30 PM [facility] Comment:As of 2021, eG FR is calculated by the CKD-EPI creatinine equation without race adjustment. eGFR can be influenced by muscle mass, exercise, and diet. The reported eGFR is an estimation only and is only applicable if the renal function is stable. Blood BLOOD SPECIMEN / Unknown Venipuncture / Unknown 05/17/2025 6:52 PM CDT 05/17/2025 7:06 PM CDT us Erick King MD CHEMISTRY Fin al Result [facility] [address] [place] [address] * BENCH MECHANIC THIN PREP PAP SCREEN IMAGED (05/18/2019 11:20 AM CDT) Case Report Gynecologic Cytology Report Case: [id number] Authorizing Provider: Mohamud Kirk Collected: 05/18/2019 1120 MD [place] Ordering Location: [facility] Received: 05/18/2019 1355 First Screen: Dara Wilson Specimen: BENCH MECHANIC ThinPrep Vial Screening, Cervical 05/27/2019 10:51 AM CDT [facility] INTERPRETATION/ RESULT NEGATIVE FOR INTRAEPITHELIAL LESION OR MALIGNANCY (NIL) (none) 05/27/2019 10:51 AM CDT [facility] at 1051 CDT SPECIMEN ADEQUACY Satisfactory for evaluation Endocervical component present 05/27/2019 10:51 AM CDT [facility] HPV REQUEST HPV if ASCUS 05/27/2019 10:51 AM CDT [facility] Date of LMP 05/07/2019 05/27/2019 10:51 AM CDT [facility] Last Pap Date never had 05/27/2019 10:51 AM CDT [facility] Last Pap Result First Pap/Unknown 10:51 AM CDT [facility] Abnormal Pap or [place] Bx in last 5 years No 05/27/2019 10:51 AM CDT [facility] Menstrual Status Regular Periods 05/27/2019 10:51 AM CDT [facility] [place] Bx Done Today No 05/27/2019 10:51 AM CDT [facility] Additional Information None given 05/27/2019 10:51 AM CDT [facility] Automated Review Successful 05/27/2019 10:51 AM CDT [facility] Comment:Specimen processed s uccessfully by automated food mixer repairer device, ThinPrep Imaging System, [employer] Note The pap test is a screening technique, not a diagnostic procedure. It is used primarily to screen for squamous cancers and precursor lesions. Published studies have shown that it is subject to both false negative and false positive results. The pap test should not be used as the sole means to diagnose or exclude pre-malignant and malignant lesions. Cytology is screened and interpreted at [facility] - [address], [place] [address] and [facility] - [address]; [place] [address] and [facility] - [address]; [place] [address] and [facility] [address]; [place] [address] 05/27/2019 10:51 AM T [facility] Other (Cervical) Non-Blood / Unknown 05/18/2019 11:20 AM CDT 05/18/2019 1:55 PM CDT Comment:This procedure was o riginally ordered at [facility]. us Mohamud iKrk MD PATHOLOGY/CYTOLOGY Final Result [facility] [address] [place] [address], [place] from Last 3 Months or Most Recently Relevant to Health Maintenance Additional Health Concerns Infection Onset Date Last Indicated Rule-Out Stool Pathogen 05/17/2025 05/18/20 25 Insurance [facility] Advance Directives * Full Code (Latest Code Status on File) Date Activated Date Inactivated Comments 10/20/2024 9:04 AM 10/20/2024 4:39 PM Question Answer Comments Code Status Discussion: Reviewed Preferences * Full Code Date Activated Date Inactivated Comments 06/05/2020 10:13 AM 06/07/2020 11:56 AM Question Answer Comments Code Status Discussion: Not Discussed * Full Code Date Activated Date Inactivated Comments 05/27/2020 3:50 PM 06/01/2020 10:40 PM Question Answer Comments Code Status Discussion: Not Discussed * Full Code Date Activated Date Inactivated Comments 04/20/2020 11:02 PM 05/27/2020 3:17 PM Question Answer Comments Code Status Discussion: Not Discussed * Full Code Date Activated Date Inactivated Comments 10/05/2019 4:19 PM 10/14/2019 12:58 PM Care Teams [employer] Relationship Specialty Start Date End Date Isiah Lozano PA [address] [place] [id number] PCP - General Physician Neuropsychology Service Director 05/17/25 Kiera Navarro MD [address] [place] [id number] Obstetrics and Gynecology 06/09/15 [facility] [address] [place] [id number] 10/01/19
--- OUTSIDE RECORDS SUMMARY | 2025-06-02 11:42 | XMS_ITS | Clinical Summary ---
Author Organization [facility] Address [address] [place] [address] Care Team Providers Care Insulator Technician Name Role Phone Isiah Lozano P.A.-C. Primary Care Provider [phone] Source Comments Patient records contain information from all sites at [facility]. For routine questions regarding patient records, call [phone] during business hours, M-F 8:00 AM - 5:00 PM Central Time. Record requests for emergency care only can be directed to [phone] at any time.[facility] Allergies Active Allergy Reactions Criticality Noted Date Comments Hydrocodone-Acetaminophen GI intolerance,Nausea Only,Other (see comments),Rash 05/05/2020 Shooting pains up L arm Lactose Nausea Only 11/18/2016 Lamotrigine Rash 04/21/2020 Latex Rash Medium 04/25/2020 Morphine Other (see comments),Rash,Jaylene rtness of breath (Reselect Reaction) High 07/30/2017 Chest tightness worsened and labored breathing after 6 milligrams of morphine in the emergency department Sulfamethoxazole Other (see comments) 08/09/2024 Sulfamethoxazole-Trimetho prim Itching 09/16/2018 Tramadol Rash 12/10/2016 Trimethoprim Other (see comments) 08/09/2024 Medications * This document contains information received from the source organization and may not represent a complete record from that organization. zonisamide (ZONEGRAN) 100 mg capsule Take 3 capsules by mouth at bedtime. 0 Active QUEtiapine (SEROquel) 400 mg tablet Take 400 mg by mouth at bedtime. 0 Active hydrOXYzine (ATARAX) 50 mg tablet Take 100 mg by mouth 2 (two) times a day. 2 Active prazosin (MINIPRESS) 2 mg capsule Take 2 mg by mouth daily. 2 Active gabapentin (NEURONTIN) 600 mg tablet Take 1 Tablet (600 mg) by mouth 3 times daily. 2 Active vortioxetine (TRINTELLIX) 20 mg tablet Take 1 tablet by mouth daily. 2 Active mirtazapine (REMERON) 30 mg tablet Take 30 mg by mouth at bedtime. Active fluticasone propionate (FLONASE) 50 mcg/actuation nasal sprayIndications :Congestion Nasal Administer 1 spray into each nostril daily. 16 g 4 Active mirtazapine (REMERON) 45 mg tablet Take 45 mg by mouth at bedtime. 4 Active polyethylene glycol (MIRALAX) 17 gram powder packet Take 17 g by mouth. 4 Active RectiCare 5 % rectal cream Apply 1 Application topically as needed. 4 Active phenazopyridine (Pyridium) 100 mg tabletIndication s:Retention Urinary Take 1 tablet (100 mg total) by mouth 3 (three) times a day as needed for painful urination. 30 tablet 4 Active miconazole (Monistat 7) 2 % vaginal cream Apply to affected areas in groin and anus twice daily for 2-4 weeks or until resolution. Active acetaminophen (TylenoL) 500 mg tablet Take 2 tablets (1,000 mg total) by mouth every 6 (six) hours. 60 tablet 1 4 Active LORazepam (Ativan) 1 mg tablet Take 1 mg by mouth 2 (two) times a day. 5 Active prazosin (Minipress) 1 mg capsule Take 1 Capsule (1 mg) by mouth at bedtime. Take along with the 2 mg dose* 5 Active ketoconazole (Nizoral) 2 % shampooIndicatio ns:Dermatitis Seborrheic Use once weekly for maintenance, increase to every other day if there is a flare of dermatitis 120 mL 11 5 Active levothyroxine 150 mcg tabletIndication s:hypothyroidism Take 1 tablet (150 mcg total) by mouth at bedtime Indications: a condition with low thyroid hormone levels. 90 tablet 4 5 Active omeprazole (PriLOSEC) [address] capsuleIndicatio ns:Gastroesophag eal Reflux Disease Without Esophagitis Take 1 capsule (20 mg total) by mouth daily before morning meal. 90 capsule 4 5 Active levonorgestreL-e thinyl estrad (Vienva) 0.1-20 mg-mcg per tablet Take 1 tablet by mouth daily. 84 tablet 4 5 Active QUEtiapine (SEROqueL) 200 mg tablet Take 150 mg by mouth daily with morning meal. 5 Active gabapentin (Neurontin) 600 mg tablet Take 600 mg by mouth. 5 Active LORazepam (Ativan) 1 mg tablet Take 1 mg by mouth. Active mirtazapine (Remeron) 45 mg tablet Take 45 mg by mouth. Active miconazole 2 % creamIndications :Infection Fungal Skin Apply 1 Application topically 2 (two) times a day. Apply to chest and upper abd. 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 09/06/2020 Borderline Personality Disorder 04/21/2020 Alcohol Syndrome 04/21/2020 Posttraumatic Stress Disorder Brief 04/21/2020 Seizure Disorder 04/21/2020 Gastroesophageal Reflux Disease Without Esophagi tis 09/21/2019 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 01/28/2019 Delusional Disorder 01/15/2019 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 Attention Deficit Hyperactive Disorder 7 Anxiety Generalized Disorder Resolved Problems Problem Noted Date Diagnosed Date Resolved Date Abscess Perirectal 08/16/2024 5 Anxiety 04/21/2020 09/11/2021 Poisoning By Unspecified Roger gs Medicaments And Biological Substances Intentional Self Harm Initial 04/21/2020 09/06/2020 Pain Shoulder 06/01/2018 09/06/2020 Loss Visual Both Eye 07/07/2011 020 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 Sera Mckeon V., D.O. Marcos Nieto M.D. Suicide Ideation (Primary Dx) Discharge Disposition: Home or Self Care 04/05/2025 12:44 PM CDT - 04/05/2025 3:57 PM CDT Emergency [facility] Emergency Department [address] [place] [phone] Marcos Nieto M.D. Behavioral Spell (Primary Dx); Depression Anxiety Discharge Disposition: Home or Self Care from Last 3 Months Immunizations Immunization Administration Dates Next Due 4vHPV (discontinued) 09/04/2009,05/12/2009,03/10 DTP 1997 DTaP (Infanrix, Tripedia) 04/26/2002,,10/31/1998,1997 H1N1 All Forms 08/25/2009 H1N1 Inj 08/25/2009 HepA Pediatric/Adolescent 09/04/2009,03/10/2009 Hib-HepB 06/05/1999,10/31/1998,08/08/1998 IPV 04/26/2002 Influenza Split 07/16/2016 Influenza TIV (IM) 10/12/2013,09/06/2011, 010 Influenza, Injectable, Mdck, Preservative Free, Quadrivalent 07/14/2024 Influenza, Seasonal, Injectable 10/12/2013,09/06,09/03/2010 Influenza, Unspecified 08/21/2023,07/18/2020 MCV4 (Menactra)(Discontinued) 05/12/2009 MCV4 (Menveo) 03/11/2014 MMR 04/26/2002,08/08/1998 PPD Test 02/08/2019 Polio, Unspecified 1997,1997, 997 SARS-COV-2 (COVID-19) - PFIZ ER BIVALENT TS(Discontinued)(12 YEARS OR OLDER) 07/23/2022 Tdap 05/18/2019,03/10/2009 NIRALI 09/05/2008,05/05/1998 influenza trivalent LAIV (Na bianca) (2 years through 49 years) 08/21/2009,09/05/2008 influenza trivalent high dos e (HD)(PF) 07/16/2016 influenza trivalent vaccine (6 months and older)(PF) 08/04/2012 influenza vaccine quad (FLUZONE/FLUARIX) (6 months and older)(PF) 10/13/2023,07/23/2022,09/11/2021,2019,06/17/2019,06/03/2016,09/16/2014,1 10/22/2008,09/05/2008 Social History Tobacco Use Types Packs/Day Years Used Date Smoking Tobacco: Never Smokeless Tobacco: Never Tobacco Cessation:Counseling Given: Not Answered Comments:Vape Alcohol Use Standard Drinks/Week Comments Not Currently 0 (1 standard drink = 0.6 oz pur e alcohol) Humiliation, Afraid, Rape, and Kick questionnair e Answer Date Recorded Within the last year, have y ou been afraid of your partner or ex-partner? No 04/05/2025 Within the last year, have y ou been humiliated or emotionally abused in other ways by your partner or ex-partner? No Within the last year, have y ou been kicked, hit, slapped, or otherwise physically hurt by your partner or ex-partner? No 04/05/2025 Within the last year, have y ou been raped or forced to have any kind of sexual activity by your partner or ex-partner? No 04/05/2025 Hunger Vital Sign Answer Date Recorded Within the past 12 months, y ou worried that your food would run out before you got the money to buy more. Never true 04/05/20 25 Within the past 12 months, t he food you bought just didn't last and you didn't have money to get more. Never true 04/05/2025 PRAPARE - Transportation Answer Date Re corded In the past 12 months, has l ack of transportation kept you from medical appointments or from getting medications? No 03/16 In the past 12 months, has l ack of transportation kept you from meetings, work, or from getting things needed for daily living? No 04/05/2025 [facility] Utilities Answer Date Recorded In the past 12 months has [employer] electric, gas, oil, or water company threatened to shut off services in your home? No 04/05/2025 Depression Answer Date Recor ded PHQ-9 Total Score (max 27) 1 12/26 Housing Stability Answer Date Recorded What is your living situatio n today? I do not have a steady place to live (I am temporarily staying with others, in a hotel, in a residential, living outside on the street, on a beach, in a car, abandoned building, bus or train station, or in a park) 04/05/2025 Education Answer Date Recorded What is the highest level of school you have completed or the highest degree you have received? 12th grade 12/26/2021 Comments Unknown Sex and Gender Information Value Date Recorded Sex Assigned at Female 06/01/2018 12:42 PM CDT Legal Sex Female 2:34 PM SAMPLING THEORY TEACHER Gender Identity Female 06/01/2018 12:42 PM CDT Sexual Orientation Straight 06/01/2018 12 :42 PM CDT Last Filed Vital Signs Vital Sign Reading Time Taken Comments Blood Pressure 127/101 04/06/2025 9:07 AM CDT Pulse 78 04/06/2025 9:07 AM CDT Temperature 36 C (96.8 F) 04/06/2025 9:07 AM CDT Respiratory Rate 18 04/06/2025 9:07 AM CDT Oxygen Saturation 98% 04/06/2025 9:07 AM CDT Inhaled Oxygen Concentration - - Weight 115 kg (253 lb 3.2 oz) 01/13/2025 2:17 PM CDT Height 171 cm (5' 7.32) 10/18/2024 11:02 AM SAMPLING THEORY TEACHER Body Mass Index 39.28 10/18/2024 11:02 AM SAMPLING THEORY TEACHER Plan of Treatment Health Maintenance Due Date Last Done Comments Depression Monitoring (PHQ-9) 1997 Cervical/Vaginal Cancer Screening 05/28/2022 05/28/2019 (Performed elsewhere), 05/18/2019 Depression Monitoring (PHQ-9 for quality tracking) 09/15/2024 COVID-19 Vaccine ( season) 2025 07/23/2022, 08/30/2021, 11/16/2020, Additional history exists Influenza Vaccine (#1) 2025 , 10/13/2023, 08/21/2023, Additional history exists Lipid (Cholesterol) Screening 10/13/2025 10/13/2024, 04/21/2020, 10/11/2019 Thyroid Stimulating Hormone (TSH) test for thyroid function 04/05/2026 04/05/2025, 10/13/2024, 01/07/2024, Additional history exists Tobacco Cessation counseling 04/06/2026 04/06/2025, 12/30/2023 Glucose Test for Med Monitoring 05/18/2026 05/18/2025, 05/17/2025, 04/06/2025, Additional history exists DTaP,Tdap,and Td Vaccines (8 - Td or Tdap) 05/18/2029 05/18/2019, 03/10/2009, 04/26/2002, Additional history exists Hepatitis B Vaccines Completed 06/05/1999, 10/31/1998, 08/08/1998 IPV Vaccines Completed 04/26/2002, 04/0 02/1998, 1997, Additional history exists Varicella Vaccines Completed 09/05/2008, 05/05/1998 HPV Vaccines Completed 09/04/2009, 04/16, 03/10/2009 Pneumococcal vaccine (0-49 years) Aged Out No longer eligible based on patient's age to complete this topic Medical Devices Implanted Type Area Physical Education Instructor Device Identifier Shelf Expiration Date Model / Serial / Lot Berta 10x12.5cm - Esteves [id number] Implanted:Qty: 1 on 12/10/2016 Bone or Tissue Other/Legacy - See Implant Description Integra Description:Device Manufactu rer - Integra FanattacciDraftster Javier. Body Location - Other. tissue used to protect tendon/nerve. Device Status Text - [id number]. Tendon Tibialis Posterior - Esteves [id number] Implanted:Qty: 1 on 12/10/2016 Bone or Tissue Other/Legacy - See Implant Description Allosource Description:Device Manufactu rer - Allosource. Body Location - Other. tendon/ligament/muscle reconstruction. Device Status Text - [id number]. Scapula Oc W Glenoid - Esteves [id number] Implanted:Qty: 1 on 12/10/2016 Bone or Tissue Other/Legacy - See Implant Description [employer] Foundation Description:Device Manufactu rer - [employer]. Body Location - Other. osteoarticular. Device Status Text - [id number]. Screw-Asnis Micro Jenni 3.0 X 34 7m - Esteves [id number] Implanted:Qty: 1 on 12/10/2016 Hardware e.g. pins/screw s/rods Kamiah Description:Device Manufactu rer - Kamiah Javier.. Device Status Text - [id number]. Screw-Asnis Micro Jenni 3.0 X 38 8m - Esteves [id number] Implanted:Qty: 1 on 12/10/2016 Hardware e.g. pins/screw s/rods Bonita Description:Device Manufactu rer - Kamiah Javier.. Device Status Text - [id number]. Screw-Asnis Micro Jenni 3.0 X 32 6m - Esteves [id number] Implanted:Qty: 1 on 12/10/2016 Hardware e.g. pins/screw s/rods Bonita Description:Device Manufactu rer - Kamiah Javier.. Device Status Text - [id number]. Procedures Procedure Name Priority Date/Time Associated Diagnosis Comments BASIC METABOLIC PANEL, S/P STAT 04/06/2025 4:45 AM CDT HUMAN CHORIONIC GONADOTROPIN (HCG), KURTIS, STAT 04/05/2025 11:29 PM CDT ETHANOL, S STAT 04/05/2025 11:29 PM CDT SALICYLATE LEVEL, S STAT 04/05/2025 1 1:29 PM CDT ACETAMINOPHEN LEVEL, S STAT 11:29 PM CDT THYROID-STIMULATING HORMONE-SENSITIVE (S-TSH) STAT 04/05/2025 11:29 PM CDT BASIC METABOLIC PANEL, S/P STAT 04/05/2025 11:29 PM CDT CBC WITH DIFFERENTIAL, B STAT 04/05/2025 11:29 PM CDT LIPID PANEL, S Routine 10/13/2024 8:27 AM SAMPLING THEORY TEACHER Well Adult Examination Normal from Last 3 Months or Most Recently Relevant to Health Maintenance Results * (ABNORMAL) Basic Metabolic Panel (04/06/2025 4:45 AM CDT) Only the most recent of2 resultswithin the time period is included. Potassium, P 3.9 3.6 - 5.2 mmol/L 04/06/2025 5:11 AM CDT [facility] Sodium, P 141 135 - 145 mmol/L 04/06/2025 5:11 AM CDT [facility] Chloride, P 111(H) 98 - 107 mmol/L 04/06/2025 5:11 AM CDT [facility] Bicarbonate, P 17(L) 22 - 29 mmol/L 04/06/2025 5:11 AM CDT [facility] Anion Gap, P 13 7 - 15 04/06/2025 5:11 AM CDT [facility] BUN (Blood Urea Nitrogen), P 12 6 - 21 mg/dL 04/06/2025 5:11 AM CDT [facility] Creatinine 0.74 0.59 - 1.04 mg/dL 04/06/2025 5:11 AM CDT [facility] Estimated GFR (eGFR) >90 >=60 mL/min/BSA 04/06/2025 5:11 AM CDT [facility] Comment: Estimated GFR calculated using the 2020 CKD_EPI creatinine equation. Calcium, Total, P 8.1(L) 8.6 - 10.0 mg/dL 04/06/2025 5:11 AM CDT [facility] Glucose, P 96 70 - 140 mg/dL 04/06/2025 5:11 AM CDT [facility] Blood (Blood, Venous) 04/06/2025 4:45 AM CDT 04/06/2025 4:49 AM CDT us Tri Santy Real Mckeon D.OKrys LAB BLOOD ADD-ON Final Res ult Performing Organization Address City/[facility]/ZIP Co de Phone Number [facility] [address] [place] [address] * Ethanol Level, Serum (04/05/2025 11:29 PM CDT) Ethanol, P <10 <10 mg/dL 04/06/2025 12:07 AM CDT [facility] Blood (Blood, Venous) 04/05/2025 11:29 PM CDT 04/05/2025 11:35 PM CDT us Guerda Mitchell M.D. LAB BLOOD NON ADD-ON Final Re sult Performing Organization Address City/[facility]/ZIP Co de Phone Number [facility] [address] [place] [address] * CBC with Differential, Blood (04/05/2025 11:29 PM CDT) Hemoglobin 12.5 11.6 - 15.0 g/dL 04/05/2025 11:37 PM CDT [facility] Hematocrit 38.1 35.5 - 44.9 % 04/05/2025 11:37 PM CDT [facility] Erythrocytes 4.64 3.92 - 5.13 x10(12)/L 04/05/2025 11:37 PM CDT [facility] MCV 82.1 78.2 - 97.9 fL 04/05/2025 11:37 PM CDT [facility] RBC Distrib Width 12.6 12.2 - 16.1 % 04/05/2025 11:37 PM CDT [facility] Platelet Count 347 157 - 371 x10(9)/L 04/05/2025 11:37 PM CDT [facility] Leukocytes 7.8 3.4 - 9.6 x10(9)/L 04/05/2025 11:37 PM CDT [facility] Neutrophils 3.96 1.56 - 6.45 x10(9)/L 04/05/2025 11:37 PM CDT [facility] Lymphocytes 2.96 0.95 - 3.07 x10(9)/L 04/05/2025 11:37 PM CDT [facility] Monocytes 0.72 0.26 - 0.81 x10(9)/L 04/05/2025 11:37 PM CDT [facility] Eosinophils 0.10 0.03 - 0.48 x10(9)/L 04/05/2025 11:37 PM CDT [facility] Basophils 0.07 0.01 - 0.08 x10(9)/L 04/05/2025 11:37 PM CDT [facility] Blood (Blood, Venous) 04/05/2025 11:29 PM CDT 04/05/2025 11:35 PM CDT us Guerda Mitchell M.D. LAB BLOOD ADD-ON Final Result [facility] [address] [place] [address], [facility] MKTO [facility] [address] [place] [address] * hCG (Human Chorionic Gonadotropin), Quantitative, (04/05/2025 11:29 PM CDT) HCG, Quantitative, , P <1.0 <5 IU/L 04/06/2025 12:07 AM CDT [facility] Blood (Blood, Venous) 04/05/2025 11:29 PM CDT 04/05/2025 11:35 PM CDT us Guerda Mitchell M.D. LAB BLOOD ADD-ON Final Result Performing Organization Address [facility] Co de Phone Number [facility] [address] [place] [address], [address] [address] * (ABNORMAL) S-TSH (Thyroid-Stimulating Hormone - Sensitive) (04/05/2025 11:29 PM CDT) TSH, Sensitive 5.3(H) 0.3 - 4.2 mIU/L 04/06/2025 12:07 AM CDT [facility] Blood (Blood, Venous) 04/05/2025 11:29 PM CDT 04/05/2025 11:35 PM CDT Result Rafat Mitchell M.D. LAB BLOOD ADD-ON Final Result Performing Organization Address [facility] Co de Phone Number [facility] [address] [place] [address], [address] [address] * Acetaminophen Level (04/05/2025 11:29 PM CDT) Acetaminophen, P <5 Therapeutic Range: 10-30 mcg/mL 04/06/2025 12:07 AM CDT MK Blood (Blood, Venous) 04/05/2025 11:29 PM CDT 04/05/2025 11:35 PM CDT us Guerda Mitchell M.D. LAB BLOOD ADD-ON Final Result Performing Organization Address City/[facility]/ZIP Co de Phone Number [facility] [address] [place] [address], [address] [address] * Salicylate Level (04/05/2025 11:29 PM CDT) Salicylate, P <0.5 <30.0 mg/dL 04/06/2025 12:07 AM CDT [facility] Blood (Blood, Venous) 04/05/2025 11:29 PM CDT 04/05/2025 11:35 PM CDT Guerda Mitchell M.D. LAB BLOOD ADD-ON Final Result Performing Organization Address City/[facility] Co de Phone Number [facility] [address] [place] [address], [address] [address] * (ABNORMAL) Lipid Panel (10/13/2024 8:27 AM SAMPLING THEORY TEACHER) Triglycerides 197(H) mg/dL 10/13/2024 12:27 PM SAMPLING THEORY TEACHER [facility] Comment: ----REFERENCE VALUE---- Normal: <150 mg/dL Borderline High: 150-199 mg/dL High: 200-499 mg/dL Very High: > or =500 mg/dL Cholesterol, Total 252(H) mg/dL 2024 12:27 PM SAMPLING THEORY TEACHER [facility] Comment: ----REFERENCE VALUE---- Desirable: < 200 mg/dL Borderline High: 200 - 239 mg/dL High: > or = 240 mg/dL Cholesterol, LDL, Calculated 162(H) mg/dL 10/13/2024 12:27 PM SAMPLING THEORY TEACHER [facility] Comment: ----REFERENCE VALUE---- Desirable: <100 mg/dL Above Desirable: 100-129 mg/dL Borderline High: 130-159 mg/dL High: 160-189 mg/dL Very High: >=190 mg/dL ----ADDITIONAL INFORMATION---- LDL cholesterol calculated using the Leiva/NIH equation. Cholesterol, HDL 54 >=50 mg/dL 10/13/19 12:27 PM SAMPLING THEORY TEACHER [facility] Cholesterol, Non-HDL, Calculated 198(H) mg/dL 10/13/2024 12:27 PM SAMPLING THEORY TEACHER [facility] Comment: ----REFERENCE VALUE---- Desirable: <130 mg/dL Above Desirable: 130-159 mg/dL Borderline High: 160-189 mg/dL High: 190-219 mg/dL Very High: > or =220 mg/dL Fasting (8 HR or more) Yes 10/13/2024 8:28 AM SAMPLING THEORY TEACHER [facility] Blood (Blood, Venous) 10/13/2024 8:27 AM SAMPLING THEORY TEACHER 10/13/2024 11:30 AM SAMPLING THEORY TEACHER Isiah Lozano P.A.-C. LAB BLOOD ADD-ON Final Res ult [facility] [address] [place] [address], [facility] [address] [place] [address] from Last 3 Months or Most Recently Relevant to Health Maintenance Insurance [employer] Advance Directives For more information, please contact: [phone] * Full Code (Latest Code Status on File) Date Activated Date Inactivated Comments 08/17/2024 1:51 AM 08/19/2024 9:57 PM Question Answer Comments Full Code: Discussed Care Teams Insulator Technician Relationship Specialty Start Date End Date Isiah Lozano P.A.-C. [address] [place] [address] PCP - General Family Medicine 12/26/21
--- OUTSIDE RECORDS SUMMARY | 2025-06-02 11:42 | XMS_ITS | Encounter Summary ---
Author Organization [facility] Address [address] [place] [address] Care Team Providers Care Hog Buyer Name Role Phone Meenu Abebe Primary Care Provider Ethel Siu NP Unavailable Nakul Vasquez MD Unavailable Anabell Reyes MD Unavailable [phone] Netta Rodriguez RN Unavailable [phone] Meenu Abebe Unavailable [phone] Sheba Lundberg MD Primary Care Provider Marge graham Encounter Details Date Type Department Care Team (Late st Contact Info) Description 11/02/2018 MyC Medical Advice [facility] Prostate [facility] Urologic C[facility] [address] [facility] [address]th [place] [address] Anabell Reyes MD [address] [facility] [address] [place] [address] Social History Tobacco Use Types Packs/Day Years Used Date Smoking Tobacco: Never Smokeless Tobacco: Never Alcohol Use Standard Drinks/Week Comments No 0 (1 standard drink = 0.6 oz pur e alcohol) AUDIT-C Answer Date Recorded Frequency of Alcohol Consumption Never 10/02/2018 Average Number of Drinks Not on file 019 Frequency of Binge Drinking Not on file 09/15 PHQ-2 Answer Date Recorded PHQ-2 Score 2 04/02/2018 Comments No Sex and Gender Information Value Date Recorded Sex Assigned at Not on file Legal Sex Female 4:10 AM JOURNEYMAN WIREMAN Gender Identity Not on file Sexual Orientation Not on file documented as of this encounter Plan of Treatment Not on file documented as of this encounter Visit Diagnoses Not on filedocumented in this encounter Care Teams Hog Buyer Relationship Specialty Start Date End Date Meenu Abebe PCP - General Physician Line Builder 02/26/18 09/09/19 Sheba Lundberg MD PCP - General 09/10/19 Ethel Siu NP [facility] [address] [place] [address] 02/26/18 Nakul Vasquez MD [address] [place] [address] [id number] Urology 02/26/18 Anabell Reyes MD [address] [place] [address] [address] [place], [place] [id number] Urology 08/12/18 Netta Rodriguez, RN Registered Nurse Urology 08/12/18 Meenu Abebe Referring Physician Physician Line Builder 08/12/18 documented as of this encounter
--- OUTSIDE RECORDS SUMMARY | 2025-06-02 11:42 | XMS_ITS | Clinical Summary ---
Author Organization [facility] Address [address] [place] [id number] Care Team Providers Care [employer]seed [employer] Order Filler Name Role Phone Ethel Siu CARDIOLOGY TECHNICIAN Unavailable Nakul Vasquez MD Unavailable [phone] Anabell Reyes MD Unavailable Netta Rodriguez RN Unavailable [phone] Meenu Abebe Unavailable [phone] Sheba Lundberg MD Primary Care Provider Marge graham Allergies Active Allergy Reactions Criticality Noted Date Comments Sulfamethoxazole-Trimethopri m Itching 09/16/2018 Lactose Nausea 11/18/2016 Morphine Shortness Of Breath,Rash High 06/30/2018 Tramadol Rash Low 12/10/2016 Medications FLUoxetine (PROZAC) 10 MG capsule Take 10 mg by mouth 11/17/2017 Active levothyroxine (SYNTHROID/LEVOT HROID) 88 MCG tablet Take 88 mcg by mouth 10/09/2017 Active ondansetron (ZOFRAN-ODT) 4 MG ODT tab 12/29/2017 Active ranitidine (ZANTAC) 150 MG tablet Take 150 mg by mouth 03/02/2018 Active Acetaminophen (TYLENOL PO) Take 500 mg by mouth Active Active Problems Problem Noted Date Diagnosed Date Diarrhea, unspecified type 11/21/2018 Complicated open wound of right hip, initial enc ounter 10/01/2018 Open wound 09/16/2018 H/O urinary retention 09/16/2018 Shoulder pain 06/01/2018 Retention of urine 08/27/2017 Urinary frequency 08/18/2017 Periumbilical abdominal pain 05/05/2015 Overview (11/25/2018): Overview: EGD 04/2015 normal Colonoscopy 04/2015 minimal nonspecific ileitis 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, trauma 04/13/20 07 Overview (11/25/2018): Overview: s/p muscle transfer surgery Failure to thrive in childhood 01/14/2007 Attention deficit hyperactivity disorder (ADHD) 01/14/2007 Social History Tobacco Use Types Packs/Day Years [...] Answer Date Recorded PHQ-2 Score 2 04/02/2018 Adolescent Education Answer Date Record ed Getting School Help Needed Not on file 06/30 Comments No Sex and Gender Information Value Date Recorded Sex Assigned at Not on file Legal Sex Female 4:10 AM CENTER RECEPTIONIST Gender Identity Not on file Sexual Orientation Not on file Last Filed Vital Signs Vital Sign Reading Time Taken Comments Blood Pressure 135/76 09/10/2019 2:30 AM CENTER RECEPTIONIST Pulse 123 12/17/2018 2:26 PM CDT Temperature 36.2 C (97.2 F) 09/10/2019 12:39 AM CENTER RECEPTIONIST Respiratory Rate 18 09/10/2019 12:39 AM CENTER RECEPTIONIST Oxygen Saturation 97% 09/10/2019 5:00 AM CENTER RECEPTIONIST Inhaled Oxygen Concentration - - Weight 49.7 kg (109 lb 8 oz) 12/17/2018 2:26 PM CDT Height 171.5 cm (5' 7.5) 12/17/2018 2:26 PM CDT Body Mass Index 16.9 12/17/2018 2:26 PM CDT Plan of Treatment Not on file Medical Devices Implanted Type Area Wireless Cellular Technician Device Identifier Shelf Expiration Date Model / Serial / Lot Lead Interstim Kit 3889-28 Implanted:Qty: 1 on 07/06/2018 by Anabell Reyes MD at [facility] Leads N/A: Sacrum [employer] 02/25/2022 3889- [id number] / / [id number] Lead Interstim Kit 3889-28 Implanted:Qty: 1 on 08/17/2018 by Anabell Reyes MD at [facility] [employer] 05/08/2022 3889-2 8 / / [id number] Stimulator Neuro Inter-Stim Ii 3058 Implanted:Qty: 1 on 08/17/2018 by Anabell Reyes MD at [facility] device Left: Buttocks [employer] 11/12/2019 3058 / [id number] / [id number] Neuro Absorbable Antibacterial Envelope Implanted:Qty: 1 on 08/17/2018 by Anabell Reyes MD at [facility] Left: Buttocks [employer] 10/15/2018 [id number] / / [id number] Explanted Type Area Wireless Cellular Technician Device Identifier Shelf Expiration Date Model / Serial / Lot Stimulator Neuro Inter-Stim Ii 3058 Implanted:Qty: 1 on 07/20/2018 by Anabell Reyes MD at [facility] Explanted:Qty: 1 on 08/17/2018 at [facility] device Right: Back [employer] 07/29/2019 3058 / [id number] / Insurance [email or web address] Care Teams Linseed Oil Order Filler Relationship Specialty Start Date End Date Sheba Lundberg MD PCP - General 09/10/19 Ethel Siu, CARDIOLOGY TECHNICIAN [facility] [address] [place] [address] 02/26/18 Nakul Vasquez MD [address] [place] [address] [id number] Urology 02/26/18 Anabell Reyes MD [address] [facility] [address] [place], [place] [id number] Urology 08/12/18 Netta Rodriguez, STEFAN Registered Nurse Urology 08/12/18 Meenu Abebe Referring Physician Physician Automotive Hardware Engineer 08/12/18
--- NOTE | 2025-06-02 11:45 | ED.GENADULT ---
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 Hydroxyzine 50 mg b.i.d. (8:00 a.m. and 4:00 p.m. Levothyroxine Lorazepam 1 mg b.i.d. The Reglan Remeron 45 mg q.h.s. Omeprazole Zofran MiraLax Prazosin 3 mg q.h.s. for nightmares Propranolol 10 mg b.i.d. Seroquel 150 mg q.a.m. and 40 mg q.h.s. V and the Vortioxetine 20 mg Zonisamide 300 mg q.h.s. History is from police officers and EMS who brought her in is that she was discovered acting oddly on the street today in [place]. Turns out she had overdosed. Unclear exactly how many pills she took. She initially told police officers that she had taken 6 or 7 mirtazapine pills. She then told EMS that she had taken 8 pills. She did have a bottle of mirtazapine with her. It was filled about 1 week ago on May 24 with 26 tablets. She is post take 1 per day and they are currently 10 left. If she had taken 1 per day for the past 9 days she would of been able to overdose on 8 tablets today. She also has a bottle of hydroxyzine 50 mg tablets with her. EMS reports that they found a few of those hydroxyzine tablets on the ground and threw them away. She also had a pouch of THC gummies with her that is currently sealed but has been previously opened. Patient says she was not able to get it open today otherwise she would have taken a couple of gummies According to the patient she says she was just feeling frustrated over 1 with her life. She did want to live anymore. She was in the process of actually trying to do a remote evaluation through crisis line. Apparently she was waiting for an email link to do that video assessment but it was not coming so she was frustrated. She is not sure why she took the pills, partly because she just could not go on feeling that way and partly because she wanted to feel better. She was also thinking about suicide. She does say she took 8 or 9 of the mirtazapine pills, to me. She does not know she took an hydroxyzine but she think she dropped some ground. She says she could not get her package of THC gummies open. She says she does not know she was suicidal or not. She does know that she does not want to go back to live with her parents. She wants to move back to [place]. Back story from the patient is that she grew up with her adoptive parents. She moved out of their house here in [place] several years ago and apparently had been living in a assisted in [place]. About a month ago she left the assisted because there was some conflict with another resident there. She moved back home to live with her parents and thought life would be better here. However she feels like her life is not been as good as she thought it would be. She is partly disappointed because she says her parent's house is a big mass at the kitchen is messy and it ?makes her sick. ?. She is also feeling overwhelmed because her parents are caring for the patient's grandmother. The patient's grandmother is disabled by dementia and a stroke and requires a lot of continuous care. Although the patient never fully consented to doing it, the patient's mother has been asking the patient to care for her grandmother. It sounds like her grandmother requires assistance getting out of bed, toileting, feeding, and transferring. The patient says that she is just overwhelmed caring for her grandmother. She loves her but it is too much. Her grandmother's heavy to lift and sometimes the patient's shoulder hurts because of the lifting. Also the patient feels socially isolated. She mostly just stays in her parent's house all the time. She says her parents never take her out to go to the Cities or to go to restaurants. The patient does not drive. She has been having to walk down to the pharmacy (at [facility]). However [facility] is [place] busy [place] and she is not comfortable walking there because she has poor vision. She has not been able to get to the pharmacy to get many of her meds filled. She can not tell me which med she has at home and which ones she is out of. It sounds like she probably has not been taking any of them for week or so she does know that she was able to get a couple of her meds filled last week (she has mirtazapine and hydroxyzine number filled on May 24, unclear if there were other meds as well). 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 Ameena, adult mental health director case, .. Called on phone at 12:30 p.m.. Message left. No answer Clinton, dad, # [phone]... He endorses that he thought xochitl was doing pretty well living in her home. He knows that this week has been a challenging weak in terms of care for xochitl his grandmother and that the family has already been trying to bring extra resources to help Raquel care for her. He was under the impression that Raquel had been taking her meds and that she generally is pretty good at taking her meds on schedule and on time. He endorses that Raquel has a generally a positive outlook for life recently and has gotten engaged to a man who lives in [place]. She has been starting to plan they are waiting. He was not aware that she was so unhappy in her current living situation. He is willing to take her back home with he and his , if it is safe. He would also support getting her transferred to a assisted with that seems better for her. He would also be agreeable to inpatient mental health care if that is what is needed. Additional history from her [facility] director case, Evelin. She returned my phone call at about 2:15 p.m.. Ameena was aware that the patient was struggling. Ameena was aware that she had not been taking her meds as prescribed. Ameena thought the patient just want to go back to her assisted in [place]. Ameena has been working on that and the earliest available staff availability is not until next Wednesday 06/06. This might require for the patient to stay in crisis hotel for several days. Probably a regular full bed at the patient's former assisted is probably not available until June 24. Alicia I discussed the patient did have an overdose today Ameena feels that since she has been crisis, off her meds, and is now overdosing that she is not safe to go home to her parents house (even though she thinks her parents are generally reliable supportive individuals) and would favor for the patient to be hospitalized. K-Cassandra requests, if at all possible, that the patient not be sent to [facility] because of its distance from the patient's home Related Data Allergies Allergy/AdvReac Type Severity Reaction Status Date / Time Opioids - Morphine Analogues Allergy Mild Verified 06/02/25 22:13 Sulfa (Sulfonamide Allergy Mild Verified 06/02/25 22:13 Antibiotics) tramadol Allergy Mild Abdominal Verified 06/02/25 22:13 Pain PFSH PFSH Social History Smoking Status: Never smoker Do you use any of these nicotine containing products: None How often do you have a drink containing alcohol: never AUDIT-C Alcohol total score: 0 Non-prescribed substance use: marijuana (any form) Non-prescribed substance use details: Occasional user, THC screen clear Exam Narrative: Exam Narrative: Constitutional: Appears well-developed and well-nourished. Alert. Drowsy but able to the be somewhat conversant. Sometimes is disorganized with her history but does respond pretty well when I ask her questions for clarification. Tachycardic HENT: Head: Atraumatic. Nose: Nose normal. Mouth/Throat: Oral mucosa is clear and moist. no trismus. Pharynx normal. Tonsils symmetric. No tonsillar enlargement, erythema, or exudate. Eyes: Conjunctivae normal. EOM normal. Pupils equal, round, and reactive to light. No scleral icterus. Neck: Normal range of motion. Neck supple. No tracheal deviation present. Cardiovascular: Normal rate, regular rhythm. No gallop. No friction rub. No murmur heard. Symmetric radial artery pulses Pulmonary/Chest: Effort normal. No stridor. No respiratory distress. No wheezes. No rales. No rhonchi . No tenderness. Abdominal: Soft. Bowel sounds normal. No distension. No mass. No tenderness. No rebound. No guarding. Musculoskeletal: RUE: Normal range of motion. No tenderness. No deformity LUE: Normal range of motion. No tenderness. No deformity RLE: Normal range of motion. No edema. No tenderness. No deformity LLE: Normal range of motion. No edema. No tenderness. No deformity Neurological: Alert and oriented to person, place, and time. Normal strength. CN II-VII intact. No sensory deficit. GCS eye subscore is 4. GCS verbal subscore is 5. GCS motor subscore is 6. Normal coordination Skin: Scabbed football shaped injury on the dorsum of her left hand which the patient says started as a burn when she was taking something out of the microwave. She has been picking at the scab. There is no bleeding. No purulent drainage. No surrounding erythema. She also has healed scars on her left dorsal forearm that appear old. Otherwise Skin is warm and dry. No rash noted. No pallor. Normal capillary refill. Psychiatric: Somewhat slow to respond initially. Flat affect. At times tearful. Poor eye contact. Endorses feeling frustrated. She does not like her current living situation and feels overwhelmed by being ?forced? care for her grandmother. She also feels socially isolated. She wants to go back to her assisted in [place]. Has not been taking her meds this week. Sounds like she was not able to get herself to the pharmacy to get some of them filled. She has not been taking any others that she does have. She is pretty vague about a lot of her history but is able to give some history and by inference I am able to gather that she is unhappy living with her parents and feeling overwhelmed caring for her grandmother. She is feeling socially isolated. It sounds like her living situation is not what she was expecting it to be she says that she has been wanting to move back to her assisted in [place] and apparently had been calling her county leather case finisher to make those arrangements. This morning her leather case finisher told her that they could not get her back to the assisted this week but possibly next week. Her leather case finisher suggested that, potentially, crisis housing could be arranged the leather case finisher was trying to set her up for a crisis evaluation this morning. Initially the patient thought that a crisis phone specialist was going to come to her house doing the evaluation but ultimately it turns out that that in-person evaluation was not feasible. Therefore the crisis team was going to send her an e-mail to a [employer] link for a remote evaluation. Does use THC gummies occasionally. But a pouch last week and took them 1 day. Has not been using them since. No alcohol. Does not think she could possibly since she is not currently sexually active. Can not answer about LMP. Const: Vital Signs, click to edit/add: Vital Signs - 24 hr 06/02/25 11:52 06/02/25 12:00 06/02/25 12:40 Temperature 98.0 F Pulse Rate 114 H 101 H Pulse Rate [Right] 104 H Respiratory Rate 16 Blood Pressure Blood Pressure [Ri ght Upper Arm] 145/103 H Pulse Oximetry 96 98 99 Oxygen Delivery Me thod Room Air 06/02/25 12:41 06/02/25 13:00 06/02/25 13:30 Temperature Pulse Rate 96 109 H 114 H Pulse Rate [Right] Respiratory Rate Blood Pressure 170/110 H Blood Pressure [Ri ght Upper Arm] Pulse Oximetry 100 98 96 Oxygen Delivery Me thod 06/02/25 13:35 06/02/25 13:45 06/02/25 14:01 Temperature Pulse Rate 101 H 123 H 116 H Pulse Rate [Right] Respiratory Rate Blood Pressure 152/95 H 145/98 H Blood Pressure [Ri ght Upper Arm] Pulse Oximetry 98 96 96 Oxygen Delivery Me thod 06/02/25 14:15 06/02/25 19:16 Temperature Pulse Rate 114 H Pulse Rate [Right] 105 H Respiratory Rate 17 Blood Pressure Blood Pressure [Ri ght Upper Arm] 144/73 H Pulse Oximetry 98 95 Oxygen Delivery Me thod Room Air Course Course ED Course: Patient was evaluated by [facility]. They report that the patient has ongoing thoughts of suicide. Patient told them if she were discharged to go home to her parents house, she would try to find the rest of her pills and take them. Therefore they recommend inpatient. Discussed with the patient's director case, Evelin. She would agree that for the patient overdose that inpatient admission is warranted. Their earliest available crisis housing is not available until next week and earliest available assisted readmission to her former assisted in [place] is not until sometime in June. Possibly June 24. Reevaluation(s) Reevaluation #1: Recheck-patient needs to go to the bathroom. She reduce urine normally. Nurses note that she was weak when transferring to and from the toilet and needed their assistance. She still has sinus tachycardia. Suspect that she is still feeling some affects of her overdose. She is probably anticholinergic from the hydroxyzine and mirtazapine. Nurses report that she seems seemed a little bit more drowsy. Reevaluation #2: Recheck-more alert. Heart rate down to 103. Able to sit up in bed. Strength is improving. She still little bit drowsy but definitely better and more conversant. Improving. Reevaluation #3: Recheck-alert. Ambulatory in the hallway but has a shuffling gait and sometimes closes her eyes. Opens them to verbal instruction is actually conversant while walking. Nurses are concerned that she may be acting more drowsy than she is. She is otherwise cooperative. Recheck-father is here to see her. He brought some of her home meds. Patient is refusing to see her father. She says ?a not in the mood. And ?I do not have the energy? to talk to him. I did meet with her father with the patient's verbal consent. Discussed with him that so far we think she is medically stable but still with drowsy after her overdose. Plan will be for inpatient mental health admission symptoms she was reporting that this was a suicide attempt. The father is agreeable. He wants to make sure she is safe. He says that he would would be willing to try to accommodate a safety plan at home, but supports whatever it takes to keep her safe. Ideally he would like her to be in the close the small minute, or possibly an inpatient in the [facility] because her mother works in [place] and her fiance lives in [place]. I recheck the patient again before for other left. She still refuses to see him. Vital Signs Vital signs: Initial Vital Signs Temperature 98.0 F 06/02/25 11:52 Temperature Source Temporal Artery Scan 06/02/25 11:52 Pulse Rate 104 H 06/02/25 11:52 Respiratory Rate 16 06/02/25 11:52 Blood Pressure 145/103 H 06/02/25 11:52 Blood Pressure Mean 117 H 06/02/25 11:52 Blood Pressure Position Supine 06/02/25 11:52 Pulse Oximetry 96 06/02/25 11:52 Oxygen Delivery Method Room Air 06/02/25 11:52 Vital Signs Temperature 98.0 F 06/02/25 11:52 Pulse Rate 104 H 06/02/25 11:52 Respiratory Rate 16 06/02/25 11:52 Blood Pressure 145/103 H 06/02/25 11:52 Pulse Oximetry 96 06/02/25 11:52 Oxygen Delivery Method Room Air 06/02/25 11:52 Temperature 98.0 F 06/02/25 11:52 Pulse Rate 105 H 06/02/25 19:16 Respiratory Rate 17 06/02/25 19:16 Blood Pressure 144/73 H 06/02/25 19:16 Pulse Oximetry 95 06/02/25 19:16 Oxygen Delivery Method Room Air 06/02/25 19:16 Medications Administered Medications: Discontinued Medications Generic Name Dose Route Start Last Admin Trade Name Freq PRN Reason Stop Dose Admin Sodium Chloride 1,000 mls @ 1,000 mls/hr 06/02/25 12:30 06/02/25 14:30 0.9 % Sodium Chloride 1000 Ml IV 06/02/25 13:29 Infused .Q1H GERI Infusion Sodium Chloride 1,000 mls @ 1,000 mls/hr 06/02/25 17:15 06/02/25 18:02 0.9 % Sodium Chloride 1000 Ml IV 06/02/25 18:14 Infused .Q1H GERI Infusion Medical Decision Making MDM Narrative Medical decision making narrative: 30-year-old female brought to the ER today by police and EMS after she was found with drowsiness and altered mental status. It turns out she had overdosed on some of her prescription medications. She also had in her position a packet of THC gummies but says that she could not get the pack it open today and so did not take any. Intent of her overdose was self-harm. She has multiple stressors. She had recently moved from her long-standing assisted delivered home for parents last month. She finds that her current living situation is worse than her assisted. She does not likely cleanliness of the house and does not like the extra responsibility that her parents of placed on her, specifically to assist in the daily cares of her elderly, disabled grandmother (who has had a stroke and does have mild dementia). She had been in contact with her [facility] director case, Evelin may, earlier today her to express her desire to move back to her assisted. No bed was immediately available. Ameena was not aware the patient was in such crisis and or that she was contemplating overdosing on pills. Ameena only found out about after she was already brought here to the ER. However the patient did have an intentional overdose and was trying to harm herself. Upon presentation she was drowsy and had sinus tachycardia which I think is consistent with overdose of hydroxyzine and possibly mirtazapine. Not otherwise super confused, mydriatic, or having dry skin to suggest active anticholinergic toxicity. Poison Center was contacted they recommended observation for at least 4 hours after ingestion. These meds should peak within that time frame. EKG does not show any QT prolongation. Other labs are reassuring. Electrolytes and kidney function normal. Blood sugar 124. LFTs exam shortly normal except for ALT of 44. TSH is slightly low at 0.184 but free T4 is normal at 1.44. Urine drug screen is positive for tricyclics and benzos which I believe she was prescribed. COVID is negative. Salicylate, ethyl, acetaminophen levels are undetectable. She did mention that she was having some ?bladder pain? lately. She is not having any tenderness on my abdominal exam. At this point I do not think she needs any CT imaging or pelvic ultrasound. We did check urinalysis which is essentially negative for infection. Urine culture pending, but at this time would hold off on antibiotics. At this point she has been observed almost 6 hours out from her ingestion (initial recommended time of observation was 4 hours, per poison Control). She has slowly improving mental status and showing signs of improvement. With reasonable clinical confidence I think she is medically clear for psychiatric evaluation. She was evaluated by [facility] and by myself. At this point it does seem as though this was an intentional self-harming ingestion with a suicidal thought. We do think she needs admission to a monitored environment as well as reinitiation of her home meds because she has been off them for a week or so. She does need inpatient mental health admission. In addition, We did contact her [facility] extra hand, Ameena. Ameena says that there was no availability for any crisis housing or readmission to her assisted until at least next week, possibly for a couple of weeks. Ameena's recommendation is that the patient will need stabilization inpatient treatment. She was accepted for admission at [facility]. They requested that we administer her nighttime medications I reviewed her most recent med list through the [facility] link. She would normally received gabapentin, hydroxyzine, lorazepam, quetiapine multiple times per day, including a bedtime but where specifically holding off on those medications due to the side of affects that she had had from her overdose earlier today. I did order for her to receive her nighttime prazosin and propranolol from her home supply. She does normally take zonisamide 300 mg at bedtime, but she only has 200 mg in her bottle from home. This medication is not on the [facility] formulary and is not available for me to give her a full dose tonight. We gave her 200 mg from her own home supply (better than no seizure meds at all). Lab Data Labs: Lab Results 06/02/25 06/02/25 06/02/25 Range/Units 12:22 12:38 13:10 WBC 7.70 (4.50-11.00) K/uL RBC 5.14 (4.00-5.20) m/uL Hgb 13.9 (12.0-16.0) gm/dL Hct 42.4 (33.0-51.0) % MCV 83 (80-100) fL MCH 27 (26-34) pg MCHC 33 (32-36) gm/dL RDW Coeff of Teri 13.3 (11.5-15.5) % Plt Count 359 (140-440) K/uL Neut % (Auto) 85.7 H (42.0-72.0) % Lymph % (Auto) 9.5 L (20-44) % Hidalgo % (Auto) 4.4 (0.0-11.0) % Eos % (Auto) 0.0 (0.0-7.0) % Baso % (Auto) 0.4 (0.0-3.0) % Neut # (Auto) 6.60 (1.7-7.0) K/uL Lymph # (Auto) 0.70 L (0.90-2.90) K/uL Hidalgo # (Auto) 0.30 (0.00-0.90) K/UL Eos # (Auto) 0.00 (0.00-0.50) K/uL Baso # (Auto) 0.03 (0.00-0.30) K/uL Abs Immat Gran (auto) 0.00 (0.00-0.30) K/uL Imm/Tot Granulo (auto) 0.0 % Sodium 144 (135-149) mmol/L Potassium 3.7 (3.6-5.1) mmol/L Chloride 112 (96-114) mmol/L Carbon Dioxide 20 (20-32) mmol/L Anion Gap 12 (7-15) mEq/L BUN 9 (5-24) mg/dL Creatinine 0.8 (0.5-1.5) mg/dL Estimated GFR 103 ml/min Glucose 124 H (60-115) mg/dL Calcium 9.8 (8.4-10.6) mg/dL Total Bilirubin 0.5 (0.1-1.5) mg/dL AST 33 (12-35) U/L ALT 44 H (4-35) U/L Alkaline Phosphatase 103 (40-150) U/L Total Protein 8.4 H (6.0-8.3) g/dL Albumin 4.7 (3.3-5.0) g/dL TSH 0.184 L (0.270-4.200) uIU/mL Free T4 1.44 (0.70-1.85) ng/dL Urine Color Yellow (Yellow) Urine Appearance Slightly Cloudy A (Clear) Urine pH 7.0 (5.0-8.5) Ur Specific Harrington 1.020 (1.000-1.030) Urine Protein Negative (Negative) Urine Glucose (UA) Negative (Negative) Urine Ketones 2+ A (Negative) Urine Blood Negative (Negative) Urine Nitrite Negative (Negative) Urine Bilirubin Negative (Negative) Urine Urobilinogen 0.2 (0.2-1.0) Ur Leukocyte Esterase Negative (Negative) Urine RBC 0-2 (0-2) Urine WBC 2-5 (0-5) Ur Squamous Epith Cells Few (None-Few) Other Sediment MODERATE YEAST (None) Urine Bacteria Few A (None) Urine HCG, Qual Negative (Negative) Salicylates < 1.0 L (1.0-10) mg/dL Urine Opiates Screen Negative (Negative) Ur Oxycodone Screen Negative (Negative) Urine Methadone Screen Negative (Negative) Acetaminophen < 10.0 (10.0-30.0) ug/mL Ur Barbiturates Screen Negative (Negative) U Tricyclic Antidepress POSITIVE A (Negative) Ur Phencyclidine Scrn Negative (Negative) Ur Amphetamines Screen Negative (Negative) U Methamphetamines Scrn Negative (Negative) U Benzodiazepines Scrn POSITIVE A (Negative) Urine Cocaine Screen Negative (Negative) U Marijuana (THC) Screen Negative (Negative) Ur Drug Screen Comment See Note Ethyl Alcohol < 0.01 (0.01-0.03) % SARS-CoV-2 (PCR) Negative SARS-CoV-2 (Negative) ECG Data Attestation: I personally reviewed and interpreted this ECG as follows: Interpretation: Sinus tachycardia Rate: 103 NM: 138 QRS axis: Normal axis ST segment/T wave: Nonspecific T-wave inversions in V1 and V2, flattening in V3-V6, 3 and AVF QTc: 358, 468 Discharge Plan Discharge Clinical Impression: Overdose, Suicide attempt Patient Disposition: Xfer Other Stand Alone Forms: MyHealth Info Instructions
[2025-06-02 12:45] LABS: Appearance Urine Slightly Cloudy (Clear)
[2025-06-02 12:52] LABS: Ur HCG Qualitative* Negative (Negative)
[2025-06-02 12:56] LABS: Cannabinoid Screen Urine Negative (Negative); Methamphetamines Screen Urine Negative (Negative); Tricyclic Antidepressant Urine POSITIVE (Negative)
--- NOTE | 2025-06-02 13:00 | ED.NURSE ---
Security went through patient belongings and inventoried them. Belongings were placed in the locked medication room. In patient belongings there was a [employer] pump device so patients body was palpated for a device as well. Patient states that she has a bladder stimulater. Patient IV was secured with Coban. Patient assisted to the restroom and a urine sample was obtained.
[2025-06-02 13:08] LABS: Other Sediment Urine MODERATE YEAST
[2025-06-02 13:23] LABS: Hematocrit* 42.4 % (33.0-51.0); Hemoglobin* 13.9 gm/dL (12.0-16.0); Immature Granulocytes Abs Auto 0.00 K/uL (0.00-0.30); Immature Granulocytes Pct Auto 0.0 %; Mean Corpuscular HGB Conc 33 gm/dL (32-36); Mean Corpuscular Hemoglobin 27 pg (26-34); Mean Corpuscular Volume 83 fL (80-100); RDW Coefficient of Variation % 13.3 % (11.5-15.5); Red Blood Count* 5.14 m/uL (4.00-5.20); White Blood Count* 7.70 K/uL (4.50-11.00)
[2025-06-02 13:26] LABS: Lymphocytes Absolute Auto 0.70 K/uL (0.90-2.90); Slide Review Reflex No
[2025-06-02 13:36] LABS: Albumin* 4.7 g/dL (3.3-5.0); Chloride* 112 mmol/L (96-114); Potassium* 3.7 mmol/L (3.6-5.1); Sodium* 144 mmol/L (135-149)
[2025-06-02 13:38] LABS: Blood Urea Nitrogen* 9 mg/dL (5-24); Creatinine* 0.8 mg/dL (0.5-1.5); Estimated Glomerular Filt Rate 103 ml/min
[2025-06-02 13:39] LABS: Alanine Aminotransferase* 44 U/L (4-35); Alkaline Phosphatase* 103 U/L (40-150); Anion Gap 12 mEq/L (7-15); Aspartate Amino Transferase* 33 U/L (12-35); Bilirubin Total* 0.5 mg/dL (0.1-1.5); Calcium* 9.8 mg/dL (8.4-10.6); Carbon Dioxide* 20 mmol/L (20-32); Glucose* 124 mg/dL (60-115); Total Protein* 8.4 g/dL (6.0-8.3)
[2025-06-02 13:48] LABS: SARS PCR* Negative SARS-CoV-2 (Negative)
[2025-06-02 13:51] LABS: Acetaminophen* < 10.0 ug/mL (10.0-30.0); Ethanol* < 0.01 % (0.01-0.03); Salicylate* < 1.0 mg/dL (1.0-10)
[2025-06-02 14:22] LABS: TSH With Reflex to FT4* 0.184 uIU/mL (0.270-4.200)
[2025-06-02 14:49] LABS: Free T4 Free Thyroxine* 1.44 ng/dL (0.70-1.85)
--- NOTE | 2025-06-02 18:44 | ED.NURSE ---
Patient ate a meal (Chicken tenders, fries, coca cola). Patient was changed into paper scrubs. Given another Liter of fluids via IV. Patient ambulated to the bathroom. Resting comfortably in her room. Patient was given 2 of her stuffed animals from her personal property. Patient has been communicating well with staff. Seems to communicate better with female staff versus male. Questions what male staff are doing a lot and why they are present a lot. Patient communicating well with staff and making needs known.
[2025-06-02] MEDS: PRAZOSIN HCL 1 MG CAPSULE 3 MG PO (22:13)
[2025-06-02] MEDS: PROPRANOLOL 20 MG TABLET 10 MG PO (22:13)
== END 2025-06-02 22:29 | disposition other institution (70) ==
PROVIDERS: Emergency Provider Emergency Medicine; PCP Physician Assistant Medical
DX: T43.022A Poisoning by tetracyclic antidepressants, intentional self-harm, initial encounter (principal); R41.82 Altered mental status, unspecified; R39.89 Other symptoms and signs involving the genitourinary system; R00.0 Tachycardia, unspecified; Z79.899 Other long term (current) drug therapy
CPT/HCPCS: 36415; 80053; 80143; 80179; 80306; 81001; 81025; 82077; 84439; 84443; 85025; 87086; 87635; 93005; 96360; 99284; 99285; Q3014; A9270; J7030

== ENCOUNTER 2025-06-02 22:19 | Outpatient (CLI) | payer MEDICAID, SELFPAY | END 2025-06-02 22:20 | disposition home or self-care (01) | LOC: AMB 06-03 11:21 | PROVIDERS: PCP Physician Assistant Medical; Visit Provider Emergency Medicine | DX: R45.851 Suicidal ideations (principal) | CPT/HCPCS: A0425; A0428 ==